=== PATIENT | male | born 1960 | race Hispanic/Latino ===

== ENCOUNTER 2020-03-10 17:49 | Inpatient (IN) | payer OTHER, SELFPAY ==
[2020-03-10] VITALS (12 sets, daily range): BP systolic 119–159; BP diastolic 69–88; PULSE 112–136; RESP 12–26; TEMP 36.9–37.9; O2SAT 94–96; BMI 35.6
--- NOTE | 2020-03-10 19:26 | DI.RAD.S_ITS ---
PROCEDURE: XR CHEST 1V INDICATIONS: suspected sepsis TECHNIQUE: One view of the chest was acquired. COMPARISON: None. FINDINGS: Surgical changes and devices: None. Lungs and pleura: Mild borderline consolidative in the right mid lung and lung base. No pleural effusions or pneumothorax. Mediastinum: Mediastinal contours appear normal. Heart size is normal. Bones and chest wall: No suspicious bony lesions. Overlying soft tissues appear unremarkable. IMPRESSION: Mild borderline consolidative airspace opacity in the right lung base and right mid lung. Dictated by: aFzal Soriano M.D. on 03/10/2020 at 20:16 Approved by: Fazal Soriano M.D. on 03/10/2020 at 20:17
[2020-03-10 19:42] LABS: COVID19 -Nasal RAPID POSITIVE (Negative)
--- NOTE | 2020-03-10 20:04 | ED_ITS ---
HPI - Fever General Chief Complaint: Fever Stated Complaint: Temp 104.5, Elevated BP Time Seen by Provider: 03/10/20 18:53 Source: patient Mode of arrival: Ambulatory Limitations: no limitations History of Present Illness HPI Narrative: 59-year-old male former smoker with history of hypertension, hyperlipidemia, diabetes and asthma presents with fever, body aches in increasing dry and hacking cough, shortness of breath with exertion, decreased appetite and as of today he noted decreased ability to smell and taste. He is concerned that he has been exposed to persons with COVID and after calling his primary care provider was encouraged to present to them for evaluation but chose to come see us for more complete and thorough evaluation. He has had no diarrhea or urinary complaints. His symptoms started about 6 days ago MD complaint: fever Maximum Temperature: 102.6 F Temperature Source: oral Context: sick contacts Relieving factors: nothing Exacerbating factors: exertion Treatments prior to arrival fever: acetaminophen and ibuprofen Related Data Home Medications Medication Instructions Recorded Confirmed cetirizine 10 mg PO QDAY #0 06/04/16 03/11/20 diphenhydramine HCl [Benadryl 25 mg PO QPM #0 06/04/16 03/11/20 Allergy] glipizide [Glucotrol XL] 5 mg PO BID #0 06/04/16 03/11/20 metformin 1,000 mg BID #0 06/04/16 03/11/20 omeprazole 20 mg PO QPM #0 06/04/16 03/11/20 sulindac 150 mg PO BID #0 06/04/16 03/11/20 albuterol sulfate [ProAir HFA] 2 puff INHALATION Q4-6H PRN 03/11/20 03/11/20 carboxymethylcellulose sodium 2 drp OPHTHALMIC (EYE) PRN PRN 03/11/20 03/11/20 [Refresh Tears] losartan 25 mg PO DAILY 03/11/20 03/11/20 Allergies Allergy/AdvReac Type Severity Reaction Status Date / Time aspirin [ASPIRIN] Allergy Unknown Verified 03/10/20 18:06 Penicillins [PENICILLINS] Allergy Unknown Verified 03/10/20 18:06 lisinopril Allergy Verified 03/10/20 18:07 tramadol Allergy Verified 03/10/20 18:07 Review of Systems Constitutional Constitutional: Reports chills, Denies fatigue, Reports fever(s), Denies frequ ent falls, Denies lethargy and Reports weakness Eyes Eyes: Denies change in vision, Denies eye discharge, Denies irritation and Denies loss of vision ENT Ears, Nose, Mouth, and Throat: Denies change in voice, Denies dizziness, Denies neck pain, Denies sore throat and Denies throat swelling Cardiovascular Cardiovascular: Denies chest pain, Denies irregular heart rhythm, Denies lightheadedness, Denies palpitations, Reports dyspnea, Denies dyspnea on exertion and Denies orthopnea Respiratory Respiratory: Reports cough, Reports dyspnea, Denies dyspnea on exertion and Denies wheezing Gastrointestinal Gastrointestinal: Denies abdominal pain, Denies change in bowel habits, Denies diarrhea, Denies nausea and Denies vomiting Musculoskeletal Musculoskeletal: Denies neck pain and Denies numbness Integumentary/Breasts Skin/Breast: Denies pruritus, Denies erythema, Denies rash and Denies wounds Neurologic Neurologic: Denies behavioral changes, Denies confusion, Denies dizziness, Denies frequent falls, Denies loss of vision, Denies numbness and Reports weakness Psychiatric Psychiatric: Denies anxiety, Denies behavioral changes, Denies confusion, Denies depression, Denies homicidal ideation and Denies suicidal ideation Endocrine Endocrine: Denies fatigue, Denies flushing and Denies palpitations Hematologic/Lymphatic Hematologic/Lymphatic: Denies easy bruising Allergic/Immunologic Allergic/Immunologic: Denies urticaria, Denies throat swelling and Denies wheezing Patient History Medical History Acid reflux Asthma Diabetes mellitus High blood pressure Pollen allergies Surgical History No history of previous surgery Family History Father Old age Mother Healthy adult Other Family history of allergies Social History household members: spouse and children Smoking Status: Former smoker alcohol intake: current Smoking Status: Unknown if ever smoked alcohol intake frequency: holidays/special occasions only Substance Use Type: does not use Exam Narrative Exam Narrative: GENERAL: [59] year old patient appears stated age. Well- nourished, well-developed patient, in mild distress. With conversation respirations become mildly labored and rate increases to upper 20s HEAD: Atraumatic. Normocephalic. EYES: Pupils equal round and reactive. Extraocular motions intact. No scleral icterus. No injection or drainage. ENT: Nose without bleeding, purulent drainage. Throat without erythema, tonsillar hypertrophy or exudate. Airway patent. NECK: Trachea midline. Non tender CARDIOVASCULAR: Regular rate and rhythm without murmurs, gallops, or rubs. RESPIRATORY: Clear to auscultation. Crackles in right lower lobe GASTROINTESTINAL: Abdomen soft, non-tender, nondistended. EXTREMITIES: No edema or joint tenderness. BACK: Nontender without deformity or crepitance. No flank tenderness. NEURO: AOx3. SKIN: No rash or erythema of visible areas Initial Vital Signs Initial Vital Signs: Vital Signs Temperature 100.3 F H 03/10/20 18:07 Pulse Rate 136 H 03/10/20 18:07 Respiratory Rate 16 03/10/20 18:07 Blood Pressure 133/83 03/10/20 18:07 Pulse Oximetry 96 03/10/20 18:07 Course Orders Ordered: Acetaminophen (Acetaminophen 325 Mg Tablet) 650 mg PO Q4H PRN PRN Reason: Fever/Mild Pain (1-3) Last Admin: 03/11/20 13:48 Dose: 650 mg Documented by: JAYLYN Albuterol (Albuterol Hfa 200 Puff/18 Gm Inh (Covid Pos/Vent Pts)) 2 puff INH RTQ6HR PRN PRN Reason: Shortness Of Breath Last Admin: 03/11/20 05:14 Dose: 2 puff Documented by: [email or web address] Albuterol/Ipratropium (Albuterol/Ipratropium Mdi) 1 puff INH [id number] AMARILIS Last Admin: 03/11/20 13:56 Dose: 1 puff Documented by: Admin: 03/11/20 11:04 Dose: Not Given Documented by: JHONY Benzocaine (Benzocaine/Menthol 1 Estrada Pkt) 1 each PO Q1HR PRN PRN Reason: Sore Throat Last Admin: 03/11/20 12:19 Dose: 1 each Documented by: Admin: 03/11/20 09:01 Dose: 1 each Documented by: Admin: 03/11/20 06:52 Dose: 1 each Documented by: DANISFARZee Dextrose (Dextrose 50 % In Water 25 Gm/50 Ml Syringe) 25 gm IV PRN PRN PRN Reason: Hypoglycemia Diphenhydramine HCl (Diphenhydramine 25 Mg Tablet) 25 mg PO QPM [facility] Enoxaparin Sodium (Enoxaparin 40 Mg/0.4 Ml Syringe) 40 mg SUBCUT DAILY [facility] Last Admin: 03/11/20 09:00 Dose: 40 mg Documented by: JAYLYN Guaifenesin (Guaifenesin Er 600 Mg Tab) 1,200 mg PO BID [facility] Last Admin: 03/11/20 12:19 Dose: 1,200 mg Documented by: JAYLYN Ibuprofen (Ibuprofen 600 Mg Tablet) 600 mg PO Q6HR PRN PRN Reason: Fever/Mild Pain (1-3) Insulin Aspart (Insulin Aspart 100 Unit/Ml Insuln Pen) 0 unit SUBCUT ACHS [facility]; Protocol Last Admin: 03/11/20 12:18 Dose: 3 unit Documented by: JAYLYN Cosigned by: ACHESS Admin: 03/11/20 09:00 Dose: 3 unit Documented by: JAYLYN Cosigned by: TBLANCHARI Insulin Glargine (Insulin Glargine 100 Unit/Ml 3ml Pen) 10 unit SUBCUT 2100 [facility] Levofloxacin (Levofloxacin 250 Mg Tablet) 750 mg PO BEDTIME [facility] Stop: 03/14/20 21:01 Losartan Potassium (Losartan 25 Mg Tablet) 25 mg PO DAILY [facility] Last Admin: 03/11/20 09:01 Dose: 25 mg Documented by: JAYLYN Naloxone HCl (Naloxone 0.4 Mg/Ml Vial) 0.2 mg IV Q2MIN PRN PRN Reason: Opiate Reversal Sodium Chloride (Sodium Chloride 0.9% Flush) 10 ml IV PRN PRN PRN Reason: Flush Discontinued Medications Acetaminophen (Acetaminophen 325 Mg Tablet) 650 mg PO Q6HR PRN PRN Reason: Fever/Mild Pain (1-3) Last Admin: 03/11/20 09:02 Dose: 650 mg Documented by: JAYLYN Albuterol (Albuterol Hfa 200 Puff/18 Gm Inh (Covid Pos/Vent Pts)) 2 puff INH Q4H PRN PRN Reason: Shortness Of Breath Sodium Chloride (Normal Saline 0.9%) 1,000 mls @ 1,000 mls/hr IV BOLUS ONE Stop: 03/10/20 20:25 Last Infusion: 03/10/20 21:27 Dose: 0 mls/hr Documented by: Admin: 03/10/20 20:14 Dose: 1,000 mls/hr Documented by: IRIS Sodium Chloride (Normal Saline 0.9%) 1,000 mls @ 1,000 mls/hr IV BOLUS ONE Stop: 03/10/20 22:38 Last Infusion: 03/10/20 22:58 Dose: 0 mls/hr Documented by: Admin: 03/10/20 21:47 Dose: 1,000 mls/hr Documented by: IRIS Levofloxacin (Levaquin) 750 mg in 150 mls @ 100 mls/hr IV NOW ONE Stop: 03/10/20 23:09 Last Infusion: 03/10/20 23:26 Dose: 0 mls/hr Documented by: Admin: 03/10/20 21:47 Dose: 100 mls/hr Documented by: IRIS Sodium Chloride (Normal Saline 0.9%) 1,000 mls @ 100 mls/hr IV CONT AMARILIS Last Infusion: 03/11/20 13:09 Dose: 0 mls/hr Documented by: Admin: 03/11/20 02:51 Dose: 100 mls/hr Documented by: DANISFARL Levofloxacin (Levaquin) 750 mg in 150 mls @ 100 mls/hr IV Q24H AMARILIS Last Admin: 03/11/20 02:52 Dose: Not Given Documented by: CMCFARL Levofloxacin (Levaquin) 750 mg in 150 mls @ 100 mls/hr IV BID AMARILIS Levofloxacin (Levaquin) 750 mg in 150 mls @ 100 mls/hr IV Q24H [facility] Vital Signs Vital signs: Vital Signs - 8 hr 03/10/20 18:07 Temperature 100.3 F H Pulse Rate 136 H Respiratory Rate 16 Blood Pressure 133/83 Pulse Oximetry 96 MDM - Fever Lab Data Result diagrams: 03/11/20 05:57 03/11/20 05:57 Labs: Lab Results 03/10/20 03/10/20 03/10/20 Range/Units 18:12 19:54 20:00 WBC 7.3 (4.5-11.0) X10^3/uL RBC 5.58 (4.5-5.9) X10^6/uL Hgb 15.9 (13.5-17.5) g/dL Hct 46.6 (41-53) % MCV 83.5 (80-100) fL MCH 28.4 (26-34) PG MCHC 34.0 (30-36) % RDW 13.0 (11.6-14.8) % Plt Count 139 L (150-400) X10^3/uL Neut % (Auto) 72.4 (50-75) % Lymph % (Auto) 17.2 L (25-40) % [place] % (Auto) 9.9 (3-14) % Eos % (Auto) 0.0 L (2-4) % Baso % (Auto) 0.5 (0-2) % Neut # (Auto) 5200 (0732-1269) /uL Lymph # (Auto) 1200 (8259-7571) /uL [place] # (Auto) 700 (0-900) /uL Eos # (Auto) 0 (0-450) /uL Baso # (Auto) 0 (0-100) /uL PT (10.1-12.7) SECONDS INR (0.9-1.3) APTT (26.4-36.2) SECONDS D-Dimer (<230) ng/mL Sodium (137-145) mmol/L Potassium (3.4-5.1) mmol/L Chloride (98-107) mmol/L Carbon Dioxide (22-32) mmol/L BUN (9-20) mg/dL Creatinine (0.66-1.25) mg/dL Estimated GFR (>60) mL/min BUN/Creatinine Ratio (6-22) Glucose (80-110) mg/dL Hemoglobin A1c (4.0-6.0) % Lactate (0.7-2.1) mmol/L Calcium (8.4-10.2) mg/dL Total Bilirubin (0.2-1.3) mg/dL AST (17-59) IU/L ALT (<50) IU/L Alkaline Phosphatase (38-126) U/L Total Protein (6.3-8.2) g/dL Albumin (3.5-5.0) g/dL Globulin (1.7-4.1) g/dL Albumin/Globulin Ratio (1.0-2.8) Lipase (23-300) U/L Procalcitonin (<0.5) ng/mL Urine Color Urine Appearance Urine pH (4.5-8.0) Ur Specific [place] (1.000-1.035) Urine Protein (Negative) Urine Glucose (UA) (Negative) g/dL Urine Ketones (NEGATIVE) Urine Occult Blood (Negative) Urine Nitrate (Negative) Urine Bilirubin (NEGATIVE) Urine Urobilinogen (0.2) E.U./dL Ur Leukocyte Esterase (NEGATIVE) Urine RBC (0-5/HPF) Urine WBC (0-5/HPF) Amorphous Sediment Urine Bacteria (None) Ur Culture Indicated? COVID-19 PCR Positive H Positive H (Negative) 03/10/20 03/10/20 03/10/20 Range/Units 20:00 20:00 20:00 WBC (4.5-11.0) X10^3/uL RBC (4.5-5.9) X10^6/uL Hgb (13.5-17.5) g/dL Hct (41-53) % MCV (80-100) fL MCH (26-34) PG MCHC (30-36) % RDW (11.6-14.8) % Plt Count (150-400) X10^3/uL Neut % (Auto) (50-75) % Lymph % (Auto) (25-40) % [place] % (Auto) (3-14) % Eos % (Auto) (2-4) % Baso % (Auto) (0-2) % Neut # (Auto) (7018-8335) /uL Lymph # (Auto) (1725-0750) /uL [place] # (Auto) (0-900) /uL Eos # (Auto) (0-450) /uL Baso # (Auto) (0-100) /uL PT 12.6 (10.1-12.7) SECONDS INR 1.1 (0.9-1.3) APTT 35 (26.4-36.2) SECONDS D-Dimer (<230) ng/mL Sodium 135 L (137-145) mmol/L Potassium 3.9 (3.4-5.1) mmol/L Chloride 101 (98-107) mmol/L Carbon Dioxide 23 (22-32) mmol/L BUN 13 (9-20) mg/dL Creatinine 0.66 (0.66-1.25) mg/dL Estimated GFR > 60.0 (>60) mL/min BUN/Creatinine Ratio 19.7 (6-22) Glucose 327 H (80-110) mg/dL Hemoglobin A1c (4.0-6.0) % Lactate (0.7-2.1) mmol/L Calcium 9.1 (8.4-10.2) mg/dL Total Bilirubin 0.6 (0.2-1.3) mg/dL AST 55 (17-59) IU/L ALT 60 H (<50) IU/L Alkaline Phosphatase 74 (38-126) U/L Total Protein 7.5 (6.3-8.2) g/dL Albumin 4.3 (3.5-5.0) g/dL Globulin 3.2 (1.7-4.1) g/dL Albumin/Globulin Ratio 1.3 (1.0-2.8) Lipase 56 (23-300) U/L Procalcitonin < 0.05 (<0.5) ng/mL Urine Color Urine Appearance Urine pH (4.5-8.0) Ur Specific [place] (1.000-1.035) Urine Protein (Negative) Urine Glucose (UA) (Negative) g/dL Urine Ketones (NEGATIVE) Urine Occult Blood (Negative) Urine Nitrate (Negative) Urine Bilirubin (NEGATIVE) Urine Urobilinogen (0.2) E.U./dL Ur Leukocyte Esterase (NEGATIVE) Urine RBC (0-5/HPF) Urine WBC (0-5/HPF) Amorphous Sediment Urine Bacteria (None) Ur Culture Indicated? COVID-19 PCR (Negative) 03/10/20 03/10/20 03/10/20 Range/Units 20:00 20:00 20:00 WBC (4.5-11.0) X10^3/uL RBC (4.5-5.9) X10^6/uL Hgb (13.5-17.5) g/dL Hct (41-53) % MCV (80-100) fL MCH (26-34) PG MCHC (30-36) % RDW (11.6-14.8) % Plt Count (150-400) X10^3/uL Neut % (Auto) (50-75) % Lymph % (Auto) (25-40) % [place] % (Auto) (3-14) % Eos % (Auto) (2-4) % Baso % (Auto) (0-2) % Neut # (Auto) (2623-5995) /uL Lymph # (Auto) (4175-3992) /uL [place] # (Auto) (0-900) /uL Eos # (Auto) (0-450) /uL Baso # (Auto) (0-100) /uL PT (10.1-12.7) SECONDS INR (0.9-1.3) APTT (26.4-36.2) SECONDS D-Dimer 220 (<230) ng/mL Sodium (137-145) mmol/L Potassium (3.4-5.1) mmol/L Chloride (98-107) mmol/L Carbon Dioxide (22-32) mmol/L BUN (9-20) mg/dL Creatinine (0.66-1.25) mg/dL Estimated GFR (>60) mL/min BUN/Creatinine Ratio (6-22) Glucose (80-110) mg/dL Hemoglobin A1c 9.3 H (4.0-6.0) % Lactate 1.2 (0.7-2.1) mmol/L Calcium (8.4-10.2) mg/dL Total Bilirubin (0.2-1.3) mg/dL AST (17-59) IU/L ALT (<50) IU/L Alkaline Phosphatase (38-126) U/L Total Protein (6.3-8.2) g/dL Albumin (3.5-5.0) g/dL Globulin (1.7-4.1) g/dL Albumin/Globulin Ratio (1.0-2.8) Lipase (23-300) U/L Procalcitonin (<0.5) ng/mL Urine Color Urine Appearance Urine pH (4.5-8.0) Ur Specific [place] (1.000-1.035) Urine Protein (Negative) Urine Glucose (UA) (Negative) g/dL Urine Ketones (NEGATIVE) Urine Occult Blood (Negative) Urine Nitrate (Negative) Urine Bilirubin (NEGATIVE) Urine Urobilinogen (0.2) E.U./dL Ur Leukocyte Esterase (NEGATIVE) Urine RBC (0-5/HPF) Urine WBC (0-5/HPF) Amorphous Sediment Urine Bacteria (None) Ur Culture Indicated? COVID-19 PCR (Negative) 03/10/20 Range/Units 21:12 WBC (4.5-11.0) X10^3/uL RBC (4.5-5.9) X10^6/uL Hgb (13.5-17.5) g/dL Hct (41-53) % MCV (80-100) fL MCH (26-34) PG MCHC (30-36) % RDW (11.6-14.8) % Plt Count (150-400) X10^3/uL Neut % (Auto) (50-75) % Lymph % (Auto) (25-40) % [place] % (Auto) (3-14) % Eos % (Auto) (2-4) % Baso % (Auto) (0-2) % Neut # (Auto) (3153-3609) /uL Lymph # (Auto) (9120-7323) /uL [place] # (Auto) (0-900) /uL Eos # (Auto) (0-450) /uL Baso # (Auto) (0-100) /uL PT (10.1-12.7) SECONDS INR (0.9-1.3) APTT (26.4-36.2) SECONDS D-Dimer (<230) ng/mL Sodium (137-145) mmol/L Potassium (3.4-5.1) mmol/L Chloride (98-107) mmol/L Carbon Dioxide (22-32) mmol/L BUN (9-20) mg/dL Creatinine (0.66-1.25) mg/dL Estimated GFR (>60) mL/min BUN/Creatinine Ratio (6-22) Glucose (80-110) mg/dL Hemoglobin A1c (4.0-6.0) % Lactate (0.7-2.1) mmol/L Calcium (8.4-10.2) mg/dL Total Bilirubin (0.2-1.3) mg/dL AST (17-59) IU/L ALT (<50) IU/L Alkaline Phosphatase (38-126) U/L Total Protein (6.3-8.2) g/dL Albumin (3.5-5.0) g/dL Globulin (1.7-4.1) g/dL Albumin/Globulin Ratio (1.0-2.8) Lipase (23-300) U/L Procalcitonin (<0.5) ng/mL Urine Color Yellow Urine Appearance Clear Urine pH 5.5 (4.5-8.0) Ur Specific [place] 1.025 (1.000-1.035) Urine Protein Trace H (Negative) Urine Glucose (UA) 2+ H (Negative) g/dL Urine Ketones 2+ H (NEGATIVE) Urine Occult Blood Trace-lysed (Negative) Urine Nitrate Negative (Negative) Urine Bilirubin Negative (NEGATIVE) Urine Urobilinogen 0.2 (0.2) E.U./dL Ur Leukocyte Esterase Negative (NEGATIVE) Urine RBC 1-5/hpf (0-5/HPF) Urine WBC None seen (0-5/HPF) Amorphous Sediment 2+ Urine Bacteria None seen (None) Ur Culture Indicated? Cult not indicated COVID-19 PCR (Negative) Urine Dip Bedside Urine Glucose 1000 mg/dl Bedside Urine Bilirubin - Negative Bedside Urine Ketone ++ 40 Urine Specific [place] 1.030 Bedside Urine Occult Blood - Negative Bedside Urine pH 5.5 Bedside Urine Protein +/- 15 Bedside Urine Urobilinogen - Negative Bedside Urine Nitrite - Negative Bedside Urine Leukocytes - Negative Esterase Imaging Data Chest x-ray: Radiologist's Impression: [address] [id number] ReportSigned Patient: Hamilton Keen AMR#: [id number]: 1960Acct:[id number]/Sex: 59 / MDate of Service: 03/10/20Loc: EDAccession Number: [id number] Procedure: XR chest 1V Ordering Provider: Pancho Davey D.O. PROCEDURE: XR CHEST 1V INDICATIONS: suspected sepsis TECHNIQUE: One view of the chest was acquired. COMPARISON: None. FINDINGS: Surgical changes and devices: None. Lungs and pleura: Mild borderline consolidative in the right mid lung and lung base. No pleural effusions or pneumothorax. Mediastinum: Mediastinal contours appear normal. Heart size is normal. Bones and chest wall: No suspicious bony lesions. Overlying soft tissues appear unremarkable. IMPRESSION: Mild borderline consolidative airspace opacity in the right lung base and right mid lung. Dictated by: Fazal Soriano M.D. on 03/10/2020 at 20:16 Approved by: Fazal Soriano M.D. on 03/10/2020 at 20:17 [facility] Narrative Medical decision making narrative: 59-year-old male is COVID positive and has high risk for deterioration including obesity, asthma, diabetic history. He currently is not requiring supplemental oxygen and meets ACEP definition of Moderate COVID given physical exam findings of abnormal lung findings and abnormal findings on imaging. Current recommendations are treatment of possible bacterial etiology, monitoring, hospitalization. No current evidence to suggest this category of patient will benefit from steroids or remdesivir. Patient understands and is in agreement with plan Discharge Plan Departure Patient Disposition: Admitted as Observation Clinical Impression: 2019 novel coronavirus–infected pneumonia (NCIP)#[id number];infected pneumonia (NCIP) Admit Date/Time: 03/11/20 01:04 Admit Provider: Ruchi Cheney
[2020-03-10] MEDS: SODIUM CHLORIDE 0.9% 1,000 ML 1000 ML IV ×2 (20:14→21:47)
[2020-03-10 20:19] LABS: Add Manual Diff / Slide Review NO; Basophils Absolute Auto 0 /uL (0-100); Basophils Percent Auto 0.5 % (0-2); Eosinophils Absolute Auto 0 /uL (0-450); Hematocrit 46.6 % (41-53); Hemoglobin 15.9 g/dL (13.5-17.5); Lymphocytes Absolute Auto 1200 /uL (1100-4500); Lymphocytes Percent Auto 17.2 % (25-40); Mean Corpuscular Hemoglobin 28.4 PG (26-34); Mean Corpuscular Volume 83.5 fL (80-100); Monocytes Absolute Auto 700 /uL (0-900); Monocytes Percent Auto 9.9 % (3-14); Neutrophils Absolute Auto 5200 /uL (1500-7000); Neutrophils Percent Auto 72.4 % (50-75); Platelet Count 139 X10^3/uL (150-400); Red Blood Cell Count 5.58 X10^6/uL (4.5-5.9); White Blood Cell Count 7.3 X10^3/uL (4.5-11.0)
[2020-03-10 20:26] LABS: INR 1.1 (0.9-1.3); Prothrombin Time 12.6 SECONDS (10.1-12.7)
[2020-03-10 20:28] LABS: PTT Partial Thromboplastin Tim 35 SECONDS (26.4-36.2)
[2020-03-10 20:31] LABS: Lactate (Lactic Acid) 1.2 mmol/L (0.7-2.1)
[2020-03-10 20:32] LABS: Alanine Aminotransferase 60 IU/L (<50); Albumin 4.3 g/dL (3.5-5.0); Albumin Globulin Ratio 1.3 (1.0-2.8); Alkaline Phosphatase 74 U/L (38-126); Aspartate Aminotransferase 55 IU/L (17-59); BUN Creatinine Ratio 19.7 (6-22); Bilirubin Total 0.6 mg/dL (0.2-1.3); Blood Urea Nitrogen 13 mg/dL (9-20); Calcium 9.1 mg/dL (8.4-10.2); Carbon Dioxide 23 mmol/L (22-32); Chloride 101 mmol/L (98-107); Estimated Glomerular Filt Rate > 60.0 mL/min (>60); Globulin 3.2 g/dL (1.7-4.1); Glucose 327 mg/dL (80-110); HEMOLYSIS < 15 (0-50); Lipase 56 U/L (23-300); Potassium 3.9 mmol/L (3.4-5.1); Sodium 135 mmol/L (137-145); Total Protein 7.5 g/dL (6.3-8.2)
[2020-03-10 20:44] LABS: COVID19 -Nasal RAPID POSITIVE (Negative)
[2020-03-10 20:46] LABS: D Dimer 220 ng/mL (<230)
[2020-03-10 20:47] LABS: Procalcitonin < 0.05 ng/mL (<0.5)
[2020-03-10] MEDS: levoFLOXacin 750 MG/150 ML PIGGYBACK 100 MG IV (21:47)
[2020-03-10 22:08] LABS: Bacteria Urine None Seen; WBC Urine None Seen (0-5/HPF)
[2020-03-10 22:19] LABS: Appearance Urine UA CLEAR; Bilirubin Urine UA NEGATIVE (NEGATIVE); Color Urine UA YELLOW; Glucose Urine UA 2+ g/dL (Negative); Ketones Urine UA 2+ (NEGATIVE); Leukocyte Esterase Urine UA NEGATIVE (NEGATIVE); Nitrite Urine UA NEGATIVE (Negative); Occult Blood Urine UA TRACE-LYSED (Negative); Protein Urine UA TRACE (Negative); Specific Gravity Urine UA 1.025 (1.000-1.035); Urobilinogen Urine UA 0.2 E.U./dL (0.2); pH Urine UA 5.5 (4.5-8.0)
[2020-03-10 22:26] LABS: Amorphous Sediment Urine 2+; Culture Indicated Urine Cult Not Indicated; RBC Urine 1-5/HPF (0-5/HPF)
--- NOTE | 2020-03-10 23:00 | PC.NURSE ---
Spoke with officer that brought pt in. Officer is leaving now and states that any further decisions will be made by the MD and [facility], pt is not under arrest
[2020-03-11] VITALS (19 sets, daily range): BP systolic 133–190; BP diastolic 67–93; PULSE 102–121; RESP 16–24; TEMP 36.8–39.4; O2SAT 93–97; BMI 35.6
--- NOTE | 2020-03-11 02:28 | PM.HP.1 ---
History of Present Illness History of Present Illness Date Patient Seen: 03/11/20 Time Patient Seen: 01:00 Chief complaint: Temp 104.5, Elevated BP Narrative: Hamilton Keen is a 59-year-old male with Diabetes type 2 and essential hypertension who presented with a 6 day history of worsening shortness of breath, cough no taste, seen at PCPs, had a fever of 104 and sent to ED, found to have a right lower lobe pneumonia and is COVID-19 positive. 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 Patient states that when he lost his sense of taste and started coughing he became quite concerned that he might have COVID -19. Other than the fever he denies chills or sweats, nausea, chest pain, dysuria, diarrhea or constipation. Chest x-ray done in the ED indicated consolidation of the right lower lung base. His COVID-19 PCR was positive and he is not requiring supplemental oxygen at this time. T-max was 100.3? in the emergency department is currently 98.8, blood pressure 157 over so 86, heart rate 106, respiratory rate of 18, oxygen saturation 96% on room air, he weighs 112 kg with a BMI of 134.4. With exception of his platelet count on his CBC is with a largely within normal limits his platelet count was a 139 and he has lymphopenia, sodium 135, glucose 327, A1c is pending, his ALT is slightly elevated at 60, urinalysis does not meet criteria for culture and COVID-19 PCR is positive. Patient History Medical History Acid reflux Asthma Diabetes mellitus High blood pressure Pollen allergies Surgical History No history of previous surgery Family & Social History Family History Father Old age Mother Healthy adult Other Family history of allergies Social History: household members spouse,children Prior Living Arrangements House Safety & Behavioral: Feels Safe in Current Yes Environment Been Physically Hurt or No Threatened By a Person Suicidal Ideation Description None Suicide Plan Description No Plan Tobacco & Substance use: Smoking Status Former smoker alcohol intake frequency holiday/special occasion Substance Use Type does not use Meds Home Medications and Allergies Home Medications Medication Instructions Recorded Confirmed Type cetirizine 10 mg PO QDAY #0 06/04/16 03/11/20 History diphenhydramine HCl [Benadryl 25 mg PO QPM #0 06/04/16 03/11/20 History Allergy] glipizide [Glucotrol XL] 5 mg PO BID #0 06/04/16 03/11/20 History metformin 1,000 mg BID #0 06/04/16 03/11/20 History omeprazole 20 mg PO QPM #0 06/04/16 03/11/20 History sulindac 150 mg PO BID #0 06/04/16 03/11/20 History albuterol sulfate [ProAir HFA] 2 puff INHALATION Q4-6H PRN 03/11/20 03/11/20 History carboxymethylcellulose sodium 2 drp OPHTHALMIC (EYE) PRN PRN 03/11/20 03/11/20 History [Refresh Tears] losartan 25 mg PO DAILY 03/11/20 03/11/20 History Allergies Allergy/AdvReac Type Severity Reaction Status Date / Time aspirin [ASPIRIN] Allergy Unknown Verified 03/10/20 18:06 Penicillins [PENICILLINS] Allergy Unknown Verified 03/10/20 18:06 lisinopril Allergy Verified 03/10/20 18:07 tramadol Allergy Verified 03/10/20 18:07 Review of Systems Review of Systems ROS: Yes All systems reviewed with the patient and are negative except as otherwise documented Exam Vital Signs (past 8 hours): - 03/10/20 19:52 03/10/20 19:53 03/10/20 20:00 Temperature Pulse Rate 124 H 124 H 124 H Respiratory Rate 19 24 Blood Pressure 148/88 H 119/82 Pulse Oximetry 95 95 94 03/10/20 20:30 03/10/20 21:00 03/10/20 21:30 Temperature Pulse Rate 119 H 114 H 117 H Respiratory Rate 16 18 26 H Blood Pressure 159/83 H 136/83 148/86 H Pulse Oximetry 94 96 96 03/10/20 22:00 03/10/20 22:30 03/10/20 23:00 Temperature Pulse Rate 119 H 115 H 116 H Respiratory Rate 18 23 12 Blood Pressure 150/82 H 133/71 128/69 Pulse Oximetry 95 94 94 03/10/20 23:29 03/10/20 23:30 03/11/20 00:00 Temperature 98.4 F Pulse Rate 112 H 110 H Respiratory Rate 20 24 Blood Pressure 130/69 133/67 Pulse Oximetry 94 96 03/11/20 00:30 03/11/20 01:00 03/11/20 01:20 Temperature 98.3 F Pulse Rate 112 H 109 H 117 H Respiratory Rate 22 16 Blood Pressure 149/74 H 140/80 190/93 H Pulse Oximetry 96 95 Oxygen Delivery Method Room Air Narrative Exam Narrative: Gen: Alert, oriented, well-developed 59 y.o. male, mildly anxious HEENT: normocephalic, atraumatic, conjunctiva clear, sclera non-icteric, oral mucosa pink and moist Neck: supple, full ROM, no JVD, trachea is midline Resp: diminished lung sounds, non-labored breathing CV: RRR, no murmur or rubs Abd: soft, non-tender, normoactive BTs Skin: no lesions or rashes, dry and intact Neuro: Alert and oriented X 4 w/no focal deficits. Speech clear and coherent. Extremities: moves all 4 extremities, is ambulatory, negative Anderson?s sign Psyche: normal mood and affect. Objective Labs Result Diagrams: 03/10/20 20:00 03/10/20 20:00 Labs: Laboratory Results - last 24 hr 03/10/20 03/10/20 03/10/20 18:12 19:54 20:00 WBC 7.3 RBC 5.58 Hgb 15.9 Hct 46.6 MCV 83.5 MCH 28.4 MCHC 34.0 RDW 13.0 Plt Count 139 L Neut % (Auto) 72.4 Lymph % (Auto) 17.2 L Emanuel % (Auto) 9.9 Eos % (Auto) 0.0 L Baso % (Auto) 0.5 Neut # (Auto) 5200 Lymph # (Auto) 1200 [place]manuel # (Auto) 700 Eos # (Auto) 0 Baso # (Auto) 0 PT INR APTT D-Dimer Sodium Potassium Chloride Carbon Dioxide BUN Creatinine Estimated GFR BUN/Creatinine Ratio Glucose Lactate Calcium Total Bilirubin AST ALT Alkaline Phosphatase Total Protein Albumin Globulin Albumin/Globulin Ratio Lipase Procalcitonin Urine Color Urine Appearance Urine pH Ur Specific [place] Urine Protein Urine Glucose (UA) Urine Ketones Urine Occult Blood Urine Nitrate Urine Bilirubin Urine Urobilinogen Ur Leukocyte Esterase Urine RBC Urine WBC Amorphous Sediment Urine Bacteria Ur Culture Indicated? COVID-19 PCR Positive H Positive H 03/10/20 03/10/20 03/10/20 20:00 20:00 20:00 WBC RBC Hgb Hct MCV MCH MCHC RDW Plt Count Neut % (Auto) Lymph % (Auto) Emanuel % (Auto) Eos % (Auto) Baso % (Auto) Neut # (Auto) Lymph # (Auto) Emanuel # (Auto) Eos # (Auto) Baso # (Auto) PT 12.6 INR 1.1 APTT 35 D-Dimer Sodium 135 L Potassium 3.9 Chloride 101 Carbon Dioxide 23 BUN 13 Creatinine 0.66 Estimated GFR > 60.0 BUN/Creatinine Ratio 19.7 Glucose 327 H Lactate Calcium 9.1 Total Bilirubin 0.6 AST 55 ALT 60 H Alkaline Phosphatase 74 Total Protein 7.5 Albumin 4.3 Globulin 3.2 Albumin/Globulin Ratio 1.3 Lipase 56 Procalcitonin < 0.05 Urine Color Urine Appearance Urine pH Ur Specific [place] Urine Protein Urine Glucose (UA) Urine Ketones Urine Occult Blood Urine Nitrate Urine Bilirubin Urine Urobilinogen Ur Leukocyte Esterase Urine RBC Urine WBC Amorphous Sediment Urine Bacteria Ur Culture Indicated? COVID-19 PCR 03/10/20 03/10/20 03/10/20 20:00 20:00 21:12 WBC RBC Hgb Hct MCV MCH MCHC RDW Plt Count Neut % (Auto) Lymph % (Auto) Emanuel % (Auto) Eos % (Auto) Baso % (Auto) Neut # (Auto) Lymph # (Auto) Emanuel # (Auto) Eos # (Auto) Baso # (Auto) PT INR APTT D-Dimer 220 Sodium Potassium Chloride Carbon Dioxide BUN Creatinine Estimated GFR BUN/Creatinine Ratio Glucose Lactate 1.2 Calcium Total Bilirubin AST ALT Alkaline Phosphatase Total Protein Albumin Globulin Albumin/Globulin Ratio Lipase Procalcitonin Urine Color Yellow Urine Appearance Clear Urine pH 5.5 Ur Specific [place] 1.025 Urine Protein Trace H Urine Glucose (UA) 2+ H Urine Ketones 2+ H Urine Occult Blood Trace-lysed Urine Nitrate Negative Urine Bilirubin Negative Urine Urobilinogen 0.2 Ur Leukocyte Esterase Negative Urine RBC 1-5/hpf Urine WBC None seen Amorphous Sediment 2+ Urine Bacteria None seen Ur Culture Indicated? Cult not indicated COVID-19 PCR Assessment & Plan Assessment & Plan narrative: Holly Randle is a 59-year-old male who will be admitted to the inpatient floor for treatment and management of a COVID-19 viral infection superimposed on a bacterial right lower lobe pneumonia. Right lower lobe pneumonia, acute, present on admission -he is started on IV Levaquin 750 mg daily and can transition on day 2 to orals -Tylenol for fever control COVID-19, acute, present on admission -he is have albuterol and DuoNeb inhalers -he is considered to have a moderate case of COVID-19 requiring hospitalization -currently is in a normalized pressure room on isolation precautions -He is at high risk to progress to requiring supplemental oxygen Diabetes type 2, appears to be not well controlled, present on admission -A1c is pending -metformin is being held and start glargine 10 units subcu at bedtime -medium dose correctional insulin a.c. and HS -carb controlled diet Essential hypertension, chronic, present on admission -continue home dose of losartan 25 mg p.o. daily VTE prophylaxis: Wells risk score: 0 Enoxaparin 40 mg subQ daily. COVID-19 guidelines for this case calls for VTE prophylaxis dosing. Consults: none Patient is admitted under inpatient status with expected length of stay greater than 2 midnights due to severity of presenting symptoms, risk of adverse event, and complexity of treatment plan. FEN: IV saline lock, diabetic carb controlled diet, BMP and magnesium in the am. Dispo: Probable discharge to home Code Status: Full code as discussed with patient COVID-19 COVID-19 status: Positive Result date/Date tested (Pos, Neg/Pending): 03/11/20 Quality VTE Deep Vein Thrombosis/Pulmonary Embolism Present on Admission: No
[2020-03-11] MEDS: SODIUM CHLORIDE 0.9% 1,000 ML 100 ML IV (02:51)
--- NOTE | 2020-03-11 03:15 | PC.NURSE ---
Addendum entered by Sofi Orta R.N. 03/11/20 04:43: Pt c/o increased cough. O2 sat 95% RA. Requests Albuterol tx. RT called. Original Note: Pt to room 204 from ER. Able to transfer self to bed. A and O x 3. Denies pain, nausea, dizziness, or shortness of breath. States he has lost his sense of taste. Currently afebrile. Pt changed clothes, voided per urinal, cbg 224, HR tachy-Pt states he is afraid. Spoke with Pt about his plan of care. Gave Pt snacks to eat and water to drink. Pt independent in room. Pt oriented to room, call light, bed controls, and tv controls. Pt agrees ot call for assistance as needed. IVF infusing as ordered.
[2020-03-11] MEDS: ALBUTEROL HFA 200 PUFF/18 GM INH (COVID POS/VENT PTS) INH (05:14)
[2020-03-11 05:51] LABS: Hemoglobin A1C% w Est Avg Glu 9.3 % (4.0-6.0)
[2020-03-11 06:15] LABS: Add Manual Diff / Slide Review NO; Basophils Absolute Auto 0 /uL (0-100); Basophils Percent Auto 0.6 % (0-2); Eosinophils Absolute Auto 0 /uL (0-450); Hematocrit 41.3 % (41-53); Hemoglobin 14.1 g/dL (13.5-17.5); Lymphocytes Absolute Auto 1300 /uL (1100-4500); Lymphocytes Percent Auto 28.4 % (25-40); Mean Corpuscular HGB Conc 34.2 % (30-36); Mean Corpuscular Hemoglobin 28.6 PG (26-34); Mean Corpuscular Volume 83.7 fL (80-100); Monocytes Absolute Auto 600 /uL (0-900); Monocytes Percent Auto 12.8 % (3-14); Neutrophils Absolute Auto 2700 /uL (1500-7000); Neutrophils Percent Auto 58.2 % (50-75); Platelet Count 114 X10^3/uL (150-400); Red Blood Cell Count 4.93 X10^6/uL (4.5-5.9); Red Cell Distribution Width 13.2 % (11.6-14.8); White Blood Cell Count 4.6 X10^3/uL (4.5-11.0)
[2020-03-11 06:27] LABS: BUN Creatinine Ratio 15.8 (6-22); Blood Urea Nitrogen 9 mg/dL (9-20); Calcium 8.2 mg/dL (8.4-10.2); Carbon Dioxide 26 mmol/L (22-32); Chloride 103 mmol/L (98-107); Estimated Glomerular Filt Rate > 60.0 mL/min (>60); Glucose 256 mg/dL (80-110); Potassium 3.9 mmol/L (3.4-5.1); Sodium 133 mmol/L (137-145)
[2020-03-11] MEDS: BENZOCAINE/MENTHOL 1 LOZ PKT 1 EACH PO ×3 (06:52→12:19)
[2020-03-11 08:46] LABS: C-Reactive Protein Quant 2.9 mg/dL (<1.0); HEMOLYSIS 16 (0-50); Lactate Dehydrogenase 601 U/L (313-618)
[2020-03-11] MEDS: INSULIN ASPART 100 UNIT/ML INSULN PEN SUBCUT ×3 (09:00→17:40)
[2020-03-11] MEDS: ENOXAPARIN 40 MG/0.4 ML SYRINGE SUBCUT (09:00)
[2020-03-11] MEDS: LOSARTAN 25 MG TABLET PO (09:01)
[2020-03-11] MEDS: ACETAMINOPHEN 325 MG TABLET 650 MG PO ×4 (09:02→22:13)
[2020-03-11] MEDS: guaiFENesin ER 600 MG TAB 1200 MG PO ×2 (12:19→21:01)
--- NOTE | 2020-03-11 13:17 | CM.IDA ---
Initial DCP Assessment Note Pt is a 59 yo male, resident of [place], admitted w/elevated temp and found to have COVID-19+ pneumonia PCP: None Listed ([facility]?) Payer: Elba Mandujano Reviewed chart, pt discussed in multidisciplinary rounds this morning. According to chart review, patient is indp. 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 Lives w/spouse and children. Taking precautions d/t COVID-19 pandemic, no needs expected from DC planning team although will remain available in case this changes before patient's DC. FLOR Pizarro
[2020-03-11] MEDS: ALBUTEROL/IPRATROPIUM MDI 1 PUFF INH (13:56)
--- NOTE | 2020-03-11 14:29 | PC.NURSE ---
SHIFT SUMMARY: PATIENT DENIES SOB AT REST OR WITH EXERTION. STATES IT'S HIS COUGH THAT IS REALLY BOTHERING HIM. DRY AND HACKING. SAT 95% AT REST AND 95% WITH ACTIVITY. OBTAINED ORDER FOR MUCINEX. HR TACHY 110 AT REST, 120 WITH EXERTION. LOW GRADE TEMP MAX 100.7 THIS SHIFT. MEDICATED W/ TYLENOL X2 THIS SHIFT. DR. ROPER CHANGED PRN TO Q 4HR AND ADDED PRN IBUPROFEN. IVF NOW SL'D PER MD ORDER. BP STABLE. STATES SYMPTOMS STARTED 1 WK AGO AND OVERALL STATES HE FEELS HE IS IMPROVING.
[2020-03-11] MEDS: diphenhydrAMINE 25 MG TABLET PO (17:40)
[2020-03-11] MEDS: IBUPROFEN 600 MG TABLET PO (21:00)
[2020-03-11] MEDS: INSULIN GLARGINE 100 UNIT/ML 3ML PEN 10 UNIT SUBCUT (21:04)
[2020-03-11] MEDS: levoFLOXacin 250 MG TABLET 750 MG PO (21:04)
[2020-03-12] VITALS (12 sets, daily range): BP systolic 130–158; BP diastolic 63–98; PULSE 100–116; RESP 16–22; TEMP 37.1–38.8; O2SAT 93–96
[2020-03-12] MEDS: ACETAMINOPHEN 325 MG TABLET 650 MG PO ×4 (05:44→21:23)
[2020-03-12] MEDS: BENZOCAINE/MENTHOL 1 LOZ PKT 1 EACH PO ×6 (06:00→21:23)
[2020-03-12 06:09] LABS: Add Manual Diff / Slide Review NO; Basophils Absolute Auto 0 /uL (0-100); Basophils Percent Auto 0.5 % (0-2); Eosinophils Absolute Auto 0 /uL (0-450); Hematocrit 41.4 % (41-53); Hemoglobin 14.2 g/dL (13.5-17.5); Lymphocytes Absolute Auto 1200 /uL (1100-4500); Lymphocytes Percent Auto 25.2 % (25-40); Mean Corpuscular HGB Conc 34.3 % (30-36); Mean Corpuscular Hemoglobin 28.4 PG (26-34); Mean Corpuscular Volume 82.8 fL (80-100); Monocytes Absolute Auto 600 /uL (0-900); Monocytes Percent Auto 12.2 % (3-14); Neutrophils Absolute Auto 2900 /uL (1500-7000); Neutrophils Percent Auto 62.1 % (50-75); Platelet Count 109 X10^3/uL (150-400); Red Cell Distribution Width 13.2 % (11.6-14.8); White Blood Cell Count 4.6 X10^3/uL (4.5-11.0)
[2020-03-12 06:24] LABS: Alanine Aminotransferase 43 IU/L (<50); Albumin 3.8 g/dL (3.5-5.0); Albumin Globulin Ratio 1.3 (1.0-2.8); Alkaline Phosphatase 55 U/L (38-126); Aspartate Aminotransferase 58 IU/L (17-59); BUN Creatinine Ratio 13.6 (6-22); Bilirubin Total 0.7 mg/dL (0.2-1.3); Blood Urea Nitrogen 8 mg/dL (9-20); C-Reactive Protein Quant 4.6 mg/dL (<1.0); Calcium 8.3 mg/dL (8.4-10.2); Carbon Dioxide 27 mmol/L (22-32); Chloride 98 mmol/L (98-107); Estimated Glomerular Filt Rate > 60.0 mL/min (>60); Globulin 2.9 g/dL (1.7-4.1); Glucose 216 mg/dL (80-110); HEMOLYSIS 17 (0-50); Lactate Dehydrogenase 879 U/L (313-618); Magnesium 1.5 mg/dL (1.6-2.3); Potassium 3.6 mmol/L (3.4-5.1); Sodium 132 mmol/L (137-145); Total Protein 6.7 g/dL (6.3-8.2)
[2020-03-12 06:41] LABS: Procalcitonin 0.06 ng/mL (<0.5)
[2020-03-12] MEDS: ALBUTEROL HFA 200 PUFF/18 GM INH (COVID POS/VENT PTS) INH (08:00)
[2020-03-12] MEDS: INSULIN ASPART 100 UNIT/ML INSULN PEN SUBCUT ×3 (08:32→21:27)
[2020-03-12] MEDS: LOSARTAN 25 MG TABLET PO (08:33)
[2020-03-12] MEDS: IBUPROFEN 600 MG TABLET PO ×2 (08:33→14:24)
[2020-03-12] MEDS: guaiFENesin ER 600 MG TAB 1200 MG PO ×2 (08:33→21:23)
[2020-03-12] MEDS: ENOXAPARIN 40 MG/0.4 ML SYRINGE SUBCUT (08:33)
[2020-03-12] MEDS: SODIUM CHLORIDE 0.9% FLUSH 10 ML IV (08:34)
[2020-03-12] MEDS: MAGNESIUM CHLORIDE 64 MG TABLET PO (11:41)
--- NOTE | 2020-03-12 12:09 | CM.DPNOTE ---
DCP Cont According to Dr Weller, patient is making good improvement in symptoms, he is not requiring O2. Dr Weller will likely keep patient admitted tonight w/DC home expected tomorrow. P: Home w/family when medically cleared, continue quarantine. No DC needs expected from DCP team, will remain available in case DC needs or concerns arise JW
[2020-03-12] MEDS: ALBUTEROL/IPRATROPIUM MDI 1 PUFF INH (13:32)
--- NOTE | 2020-03-12 13:47 | P.PN_ITS ---
Subjective Subjective Date Patient Seen: 03/12/20 Interval history: Hamilton Keen is a 59-year-old male former smoker with a past medical history significant for hypertension, diabetes mellitus type 2, non-insulin using, asthma, seasonal allergies, and GERD using who presented to the ED for fever, myalgias, dry nonproductive cough, decreased appetite and decreased ability to smell and taste. The patient is resting in a bed and appears comfortable. He reports that he continues to have persistent dry cough which is causing his abdominal muscles to ache. He reports his fever, chills, and myalgias have resolved. He denies headache, shortness of breath, chest pain, nausea, vomiting, fever, chills, dysuria, diarrhea or constipation. He reports his smell and taste are slightly improved today and he ate his lunch. He is voiding and eliminating without difficulty. He is up ambulating independently. Exam Vital Signs (past 8 hours): - 03/12/20 06:00 03/12/20 07:00 03/12/20 08:00 Temperature 102 F H 100.2 F H Pulse Rate 114 H 110 H 116 H Respiratory Rate 18 20 17 Blood Pressure 141/89 H 158/86 H Pulse Oximetry 96 95 95 03/12/20 12:00 03/12/20 13:33 Temperature 98.8 F Pulse Rate 105 H 100 H Respiratory Rate 22 20 Blood Pressure 140/79 Pulse Oximetry 94 94 Oxygen Delivery Method Room Air Oxygen Flow Rate 0 Narrative Exam Narrative: General: Older male sitting in bed in no acute distress, appears mildly ill, well-developed, well-nourished, appropriately interactive. HEENT: Normocephalic, atraumatic. External ears without defect. Pupils equal, round, and reactive to light. Anicteric sclerae, moist conjunctivae, and no lid lag. Oropharynx free of erythema and cobble stoning with moist mucosa. Neck: Supple with full range of motion. No lymphadenopathy or thyromegaly. Cardiovascular: Regular rhythm, mild tachycardia, without murmurs, rubs, or gallops appreciated. Pulmonary:Diminished throughout but clearto auscultation bilaterally without c rackles, wheezes, or rhonchi. Normal respiratory effort with no use of accessory muscles. Abdomen: Soft, obese, bowel sounds present, nontender, nondistended. No hepatosplenomegaly or masses appreciated. Extremities: No clubbing, cyanosis, or edema. Skin: Normal temperature, turgor, and texture; no rash, ulcers, or subcutaneous nodules appreciated. Neurological: Cranial nerves grossly intact. Psychiatric: Mildly anxious mood and normal affect. Alert and oriented to person, place, and time. Objective Labs Result Diagrams: 03/12/20 05:55 03/12/20 05:55 Labs: Laboratory Results - last 24 hr 03/12/20 03/12/20 03/12/20 05:55 05:55 05:55 WBC 4.6 RBC 5.00 Hgb 14.2 Hct 41.4 MCV 82.8 MCH 28.4 MCHC 34.3 RDW 13.2 Plt Count 109 L Neut % (Auto) 62.1 Lymph % (Auto) 25.2 [place] % (Auto) 12.2 Eos % (Auto) 0.0 L Baso % (Auto) 0.5 Neut # (Auto) 2900 Lymph # (Auto) 1200 [place] # (Auto) 600 Eos # (Auto) 0 Baso # (Auto) 0 Sodium 132 L Potassium 3.6 Chloride 98 Carbon Dioxide 27 BUN 8 L Creatinine 0.59 L Estimated GFR > 60.0 BUN/Creatinine Ratio 13.6 Glucose 216 H Calcium 8.3 L Magnesium 1.5 L Total Bilirubin 0.7 AST 58 ALT 43 Alkaline Phosphatase 55 Lactate Dehydrogenase 879 H D C-Reactive Protein 4.6 H Total Protein 6.7 Albumin 3.8 Globulin 2.9 Albumin/Globulin Ratio 1.3 Procalcitonin 0.06 Assessment & Plan Assessment & Plan narrative: Hamilton Keen is a 59-year-old male former smoker with a past medical history significant for hypertension, diabetes mellitus type 2, non-insulin using, asthma, seasonal allergies, and GERD using who presented to the ED for fever, myalgias, dry nonproductive cough, decreased appetite and decreased ability to smell and taste. 1. Acute COVID-19 viral pneumonia with possible superimposed bacterial pneumonia, present on admission. Active. -Patient presented with fever, chills, myalgias, dry nonproductive cough, decreased appetite and decreased ability to smell and taste for 6 days. -Chest x-ray demonstrated mild borderline consolidative airspace opacity in the right lung base and right mid lung. -COVID-19 positive. -Initial LDH 601 trending up now 879. Initial CRP 2.0 and tending up now 4.6. -Initial WBC 7.3 and procalcitonin < 0.05. WBC remains normal and procalcitonin low 0.06. It is unclear whether the patient truly has superimposed bacterial pneumonia as he has no systemic signs of infection including leukocytosis or elevated procalcitonin but will continue a 5 day course of levofloxacin 750 mg daily for consolidation demonstrated on chest x-ray. -Continue symptomatic control as needed: Antipyretic with acetaminophen 650 mg every 4 hours as needed for fever or mild pain, anti-inflammatory with ibuprofen 600 mg every 6 hours as needed for fever or mild pain, and antiemetic with ondansetron 4 mg every 8 hours as needed for nausea or vomiting. -Continue respiratory therapy evaluation and treatment. Continue Combivent inhaler every 6 hours while awake and albuterol inhaler every 2 hours as needed for shortness of breath or wheezing. Continue Mucinex 1200 mg twice daily. May use supplemental oxygen if necessary to maintain oxygen saturations >92%. Patient has not demonstrated any hypoxemia and is saturating mid 90s on room air. -Continue isolation and droplet precautions. 2. Diabetes mellitus type 2, non-insulin using, chronic, present on admission. Stable. -Hemoglobin A1c 9.3% indicative of poor glycemic control. -Held home metformin and glipizide during hospitalization and started Lantus increased from 10 units to 15 units at bedtime. Of note, patient reports that he is likely to start insulin in the near future with a specialist. -Continue blood glucose checks and medium dose correctional scale insulin. -Continue heart healthy/carbohydrate consistent diet. 3. Hypertension, chronic, present on admission. Stable. -Continue home losartan 25 mg daily. 4. GERD, chronic, present on admission. Stable. -Continue home omeprazole 20 mg daily at bedtime. Code Status: Full code as discussed with patient VTE prophylaxis: Enoxaparin Disposition: If patient continues to remain stable overnight and does not decompensate and is not hypoxemic then will likely discharge home tomorrow. Quality VTE Deep Vein Thrombosis/Pulmonary Embolism Present on Admission: No
[2020-03-12] MEDS: PANTOPRAZOLE 20 MG TABLET PO (17:15)
[2020-03-12] MEDS: diphenhydrAMINE 25 MG TABLET PO (17:15)
[2020-03-12] MEDS: INSULIN GLARGINE 100 UNIT/ML 3ML PEN 15 UNIT SUBCUT (21:27)
[2020-03-12] MEDS: levoFLOXacin 250 MG TABLET 750 MG PO (21:37)
[2020-03-13] VITALS (18 sets, daily range): BP systolic 125–178; BP diastolic 74–90; PULSE 105–119; RESP 16–20; TEMP 36.8–39.4; O2SAT 89–95
[2020-03-13] MEDS: ALBUTEROL/IPRATROPIUM MDI 1 PUFF INH ×3 (01:17→15:08)
[2020-03-13] MEDS: IBUPROFEN 600 MG TABLET PO ×3 (01:18→18:05)
--- NOTE | 2020-03-13 03:48 | PC.NURSE ---
0340 Responded to low O2 alarm. O2 saturation is 89% on RA. Pt reports h/o sleep apnea/snoring. Placed on 1LPM via NC, O2 saturation now at 93%.
[2020-03-13 04:55] LABS: Add Manual Diff / Slide Review NO; Basophils Absolute Auto 0 /uL (0-100); Basophils Percent Auto 0.3 % (0-2); Eosinophils Absolute Auto 0 /uL (0-450); Hematocrit 40.4 % (41-53); Hemoglobin 13.8 g/dL (13.5-17.5); Lymphocytes Absolute Auto 900 /uL (1100-4500); Lymphocytes Percent Auto 19.8 % (25-40); Mean Corpuscular HGB Conc 34.2 % (30-36); Mean Corpuscular Hemoglobin 28.2 PG (26-34); Mean Corpuscular Volume 82.6 fL (80-100); Monocytes Absolute Auto 400 /uL (0-900); Monocytes Percent Auto 9.3 % (3-14); Neutrophils Absolute Auto 3200 /uL (1500-7000); Neutrophils Percent Auto 70.6 % (50-75); Platelet Count 109 X10^3/uL (150-400); Red Cell Distribution Width 12.8 % (11.6-14.8); White Blood Cell Count 4.6 X10^3/uL (4.5-11.0)
[2020-03-13 05:05] LABS: BUN Creatinine Ratio 14.1 (6-22); Blood Urea Nitrogen 9 mg/dL (9-20); Calcium 8.1 mg/dL (8.4-10.2); Carbon Dioxide 27 mmol/L (22-32); Chloride 96 mmol/L (98-107); Estimated Glomerular Filt Rate > 60.0 mL/min (>60); Glucose 231 mg/dL (80-110); HEMOLYSIS < 15 (0-50); Lactate Dehydrogenase 1138 U/L (313-618); Magnesium 1.7 mg/dL (1.6-2.3); Potassium 3.5 mmol/L (3.4-5.1); Sodium 131 mmol/L (137-145)
[2020-03-13 05:21] LABS: Procalcitonin 0.07 ng/mL (<0.5)
[2020-03-13] MEDS: BENZOCAINE/MENTHOL 1 LOZ PKT 1 EACH PO ×4 (06:46→22:48)
[2020-03-13] MEDS: DEXAMETHASONE 10 MG/ML VIAL 6 MG IV (06:46)
[2020-03-13] MEDS: INSULIN ASPART 100 UNIT/ML INSULN PEN SUBCUT ×4 (08:47→22:49)
[2020-03-13] MEDS: REMDESIVIR 200 MG in SODIUM CHLORIDE 0.9% 210 ML 250 ML IV (08:47)
[2020-03-13] MEDS: ENOXAPARIN 40 MG/0.4 ML SYRINGE SUBCUT (08:48)
[2020-03-13] MEDS: LORATADINE 10 MG TABLET PO (08:49)
[2020-03-13] MEDS: ACETAMINOPHEN 325 MG TABLET 650 MG PO ×3 (08:49→22:50)
[2020-03-13] MEDS: guaiFENesin ER 600 MG TAB 1200 MG PO ×2 (08:49→22:51)
[2020-03-13] MEDS: SODIUM CHLORIDE 0.9% FLUSH 10 ML IV ×2 (08:50→22:52)
[2020-03-13] MEDS: MAGNESIUM CHLORIDE 64 MG TABLET PO ×2 (08:54→22:51)
[2020-03-13] MEDS: LOSARTAN 25 MG TABLET PO (08:54)
[2020-03-13] MEDS: ALBUTEROL HFA 200 PUFF/18 GM INH (COVID POS/VENT PTS) INH (09:00)
[2020-03-13] MEDS: diphenhydrAMINE 25 MG TABLET PO (17:20)
[2020-03-13] MEDS: PANTOPRAZOLE 20 MG TABLET PO (17:20)
--- NOTE | 2020-03-13 17:34 | P.PN_ITS ---
Subjective Subjective Date Patient Seen: 03/13/20 Interval history: Hamilton Keen is a 59-year-old male former smoker with a past medical history significant for hypertension, diabetes mellitus type 2, non-insulin using, asthma, MELISSA on CPAP, seasonal allergies, and GERD using who presented to the ED for fever, myalgias, dry nonproductive cough, decreased appetite and decreased ability to smell and taste. The patient is resting in a bed and appears comfortable. He reports that he continues to have persistent dry cough with paroxysms which is causing his abdominal muscles to ache. He continues to have intermittent high fevers. He had mild hypoxemia overnight and was started on 1-2 L supplemental oxygen. Discussed possible apnea while sleeping in which the patient informs me that he has obstructive sleep apnea and is on CPAP at home and question whether his hypoxemia overnight was due to his MELISSA or true hypoxemia. Patient was started on dexamethasone and remdesivir. He denies headache, shortness of breath, chest pain, nausea, vomiting, fever, chills, dysuria, diarrhea or constipation. He reports his smell and taste are slightly improved. He is voiding and elimi nating without difficulty. He is up ambulating independently. Exam Vital Signs (past 8 hours): - 03/13/20 10:20 03/13/20 10:21 03/13/20 15:00 Pulse Rate 105 H Respiratory Rate 20 Pulse Oximetry 90 L 93 94 Oxygen Delivery Method Nasal Cannula Oxygen Flow Rate 2 Narrative Exam Narrative: General: Older male sitting in bed in no acute distress, appears mildly ill, well-developed, well-nourished, appropriately interactive. HEENT: Normocephalic, atraumatic. External ears without defect. Pupils equal, round, and reactive to light. Anicteric sclerae, moist conjunctivae, and no lid lag. Oropharynx free of erythema and cobble stoning with moist mucosa. Neck: Supple with full range of motion. No lymphadenopathy or thyromegaly. Cardiovascular: Regular rhythm, mild tachycardia, without murmurs, rubs, or gallops appreciated. Pulmonary: Diminished throughout with slightly less air movement but clear to auscultation bilaterally without crackles, wheezes, or rhonchi. Normal respiratory effort with no use of accessory muscles. Abdomen: Soft, obese and protuberant, bowel sounds present, nontender, nondistended. No hepatosplenomegaly or masses appreciated. Extremities: No clubbing, cyanosis, or edema. Skin: Normal temperature, turgor, and texture; no rash, ulcers, or subcutaneous nodules appreciated. Neurological: Cranial nerves grossly intact. Psychiatric: Mildly anxious mood and normal affect. Alert and oriented to person, place, and time. Objective Labs Result Diagrams: 03/13/20 04:40 03/13/20 04:40 Labs: Laboratory Results - last 24 hr 03/13/20 03/13/20 03/13/20 04:40 04:40 04:40 WBC 4.6 RBC 4.90 Hgb 13.8 Hct 40.4 L MCV 82.6 MCH 28.2 MCHC 34.2 RDW 12.8 Plt Count 109 L Neut % (Auto) 70.6 Lymph % (Auto) 19.8 L [place] % (Auto) 9.3 Eos % (Auto) 0.0 L Baso % (Auto) 0.3 Neut # (Auto) 3200 Lymph # (Auto) 900 L [place] # (Auto) 400 Eos # (Auto) 0 Baso # (Auto) 0 Sodium 131 L Potassium 3.5 Chloride 96 L Carbon Dioxide 27 BUN 9 Creatinine 0.64 L Estimated GFR > 60.0 BUN/Creatinine Ratio 14.1 Glucose 231 H Calcium 8.1 L Magnesium 1.7 Lactate Dehydrogenase 1138 H C-Reactive Protein 6.0 H Procalcitonin 0.07 Assessment & Plan Assessment & Plan narrative: Hamilton Keen is a 59-year-old male former smoker with a past medical history significant for hypertension, diabetes mellitus type 2, non-insulin using, asthma, seasonal allergies, and GERD using who presented to the ED for fever, myalgias, dry nonproductive cough, decreased appetite and decreased ability to s thor and taste. 1. Acute COVID-19 viral pneumonia with possible superimposed bacterial pneumonia, present on admission. Active. -Patient presented with fever, chills, myalgias, dry nonproductive cough, decreased appetite and decreased ability to smell and taste for 6 days. -Chest x-ray demonstrated mild borderline consolidative airspace opacity in the right lung base and right mid lung. -COVID-19 positive. -Initial LDH 601 trending up now 1138. Initial CRP 2.0 and tending up now 6.0. -Initial WBC 7.3 and procalcitonin < 0.05. WBC remains normal and procalcitonin low 0.07. It is unclear whether the patient truly has superimposed bacterial pneumonia as he has no systemic signs of infection including leukocytosis or elevated procalcitonin but will continue a 5 day course of levofloxacin 750 mg daily for consolidation demonstrated on chest x-ray. -Continue symptomatic control as needed: Antipyretic with acetaminophen 650 mg every 4 hours as needed for fever or mild pain, anti-inflammatory with ibuprofen 600 mg every 6 hours as needed for fever or mild pain, codeine with guaifenesin 5 mL every 6 hours as needed for cough paroxysms and antiemetic with ondansetron 4 mg every 8 hours as needed for nausea or vomiting. -Continue respiratory therapy evaluation and treatment. Continue Combivent inhaler every 6 hours while awake and albuterol inhaler every 2 hours as needed for shortness of breath or wheezing. Continue Mucinex 1200 mg twice daily. Continue supplemental oxygen to maintain oxygen saturations >92% and titrate off as tolerated. -Continue negative pressure isolation and droplet precautions. -Continue dexamethasone 6 mg daily all hospitalized or 10 days whichever comes 1st and remdesivir 200 mg IV x1 today and 100 mg IV daily for 5 days or until discharge. 2. Acute hypoxemic respiratory failure, not present on admission. Active. -Patient had mild desaturation overnight on 03/12 and question whether this is true hypoxemia or MELISSA as he was not on CPAP. Patient has asthma and is high risk of pulmonary decompensation. -Continue respiratory therapy evaluation and treatment. Continue supplemental oxygen to maintain oxygen saturations >92% and titrate off as tolerated. Continue to treat COVID 19 viral pneumonia as above. 3. Obstructive sleep apnea on CPAP, chronic, present on admission. Stable. -Question whether patient's hypoxemia overnight was apnea versus true hypoxemia and inpatient informed me that he has MELISSA. -Patient's spouse to bring in home CPAP. Continue home CPAP per RT protocol. 4. Diabetes mellitus type 2, non-insulin using, chronic, present on admission. Stable. -Hemoglobin A1c 9.3% indicative of poor glycemic control. -Held home metformin and glipizide during hospitalization and started Lantus increased from 15 units to 20 units at bedtime due to better control blood glucose in setting of glucocorticoid. Of note, patient reports that he is planning to start insulin in the near future with a specialist. -Continue blood glucose checks and medium dose correctional scale insulin. -Continue heart healthy/carbohydrate consistent diet. 5. Hypertension, chronic, present on admission. Stable. -Continue home losartan 25 mg daily. 6. GERD, chronic, present on admission. Stable. -Continue home omeprazole 20 mg daily at bedtime. Code Status: Full code as discussed with patient VTE prophylaxis: Enoxaparin Disposition: Patient remains hospitalized and will discharge home once hypoxemia improved. Quality VTE Deep Vein Thrombosis/Pulmonary Embolism Present on Admission: No
[2020-03-13] MEDS: CODEINE/GUAIFENESIN LIQUID 5ML UDC 5 ML PO (19:05)
[2020-03-13] MEDS: POTASSIUM CHLORIDE 20 MEQ TAB 40 MEQ PO (19:05)
[2020-03-13] MEDS: INSULIN GLARGINE 100 UNIT/ML 3ML PEN 20 UNIT SUBCUT (22:48)
[2020-03-13] MEDS: levoFLOXacin 250 MG TABLET 750 MG PO (22:51)
--- NOTE | 2020-03-13 23:05 | PC.NURSE ---
COVID+ pt. requires insulin. Dry cough, diminished but clear. Pt 2L NC satting well around 94-95%. Afebrile. Pain on coughing. Anxious. Tolerates medications well.
[2020-03-14] VITALS (14 sets, daily range): BP systolic 119–144; BP diastolic 63–78; PULSE 101–109; RESP 16–28; TEMP 36.8–37.5; O2SAT 91–95
--- NOTE | 2020-03-14 02:59 | PC.NURSE ---
Pt resting comfortably w/CPAP in place. Infrequent dry, non-productive cough - pt is not requesting meds, denies pain.
[2020-03-14] MEDS: BENZOCAINE/MENTHOL 1 LOZ PKT 1 EACH PO ×6 (03:49→19:40)
[2020-03-14] MEDS: ACETAMINOPHEN 325 MG TABLET 650 MG PO ×4 (03:50→22:32)
[2020-03-14] MEDS: CODEINE/GUAIFENESIN LIQUID 5ML UDC 5 ML PO ×4 (03:50→22:31)
[2020-03-14] MEDS: ALBUTEROL/IPRATROPIUM MDI 1 PUFF INH ×2 (03:59→14:33)
[2020-03-14 06:13] LABS: Add Manual Diff / Slide Review NO; Basophils Absolute Auto 0 /uL (0-100); Basophils Percent Auto 0.2 % (0-2); Eosinophils Absolute Auto 0 /uL (0-450); Lymphocytes Absolute Auto 700 /uL (1100-4500); Lymphocytes Percent Auto 14.9 % (25-40); Mean Corpuscular HGB Conc 34.1 % (30-36); Mean Corpuscular Hemoglobin 28.2 PG (26-34); Mean Corpuscular Volume 82.5 fL (80-100); Monocytes Absolute Auto 600 /uL (0-900); Monocytes Percent Auto 13.6 % (3-14); Neutrophils Absolute Auto 3200 /uL (1500-7000); Neutrophils Percent Auto 71.3 % (50-75); Platelet Count 135 X10^3/uL (150-400); Red Blood Cell Count 4.97 X10^6/uL (4.5-5.9); White Blood Cell Count 4.5 X10^3/uL (4.5-11.0)
[2020-03-14 06:19] LABS: Lactate Dehydrogenase 1517 U/L (313-618)
[2020-03-14 06:24] LABS: Alanine Aminotransferase 59 IU/L (<50); Albumin 3.5 g/dL (3.5-5.0); Albumin Globulin Ratio 1.2 (1.0-2.8); Alkaline Phosphatase 57 U/L (38-126); Aspartate Aminotransferase 82 IU/L (17-59); Bilirubin Total 0.7 mg/dL (0.2-1.3); Blood Urea Nitrogen 14 mg/dL (9-20); Calcium 8.5 mg/dL (8.4-10.2); Carbon Dioxide 28 mmol/L (22-32); Chloride 100 mmol/L (98-107); Estimated Glomerular Filt Rate > 60.0 mL/min (>60); Glucose 272 mg/dL (80-110); HEMOLYSIS < 15 (0-50); Magnesium 1.9 mg/dL (1.6-2.3); Potassium 4.1 mmol/L (3.4-5.1); Sodium 133 mmol/L (137-145); Total Protein 6.5 g/dL (6.3-8.2)
[2020-03-14 06:39] LABS: Procalcitonin < 0.05 ng/mL (<0.5)
[2020-03-14] MEDS: ENOXAPARIN 40 MG/0.4 ML SYRINGE SUBCUT (08:25)
[2020-03-14] MEDS: guaiFENesin ER 600 MG TAB 1200 MG PO (08:25)
[2020-03-14] MEDS: LORATADINE 10 MG TABLET PO (08:28)
[2020-03-14] MEDS: MAGNESIUM CHLORIDE 64 MG TABLET PO ×2 (08:29→22:44)
[2020-03-14] MEDS: REMDESIVIR 100 MG in SODIUM CHLORIDE 0.9% 230 ML 250 ML IV (08:29)
[2020-03-14] MEDS: SODIUM CHLORIDE 0.9% FLUSH 10 ML IV ×2 (08:29→22:46)
[2020-03-14] MEDS: INSULIN ASPART 100 UNIT/ML INSULN PEN SUBCUT ×4 (08:32→22:26)
[2020-03-14] MEDS: DEXAMETHASONE 10 MG/ML VIAL 6 MG IV (08:41)
[2020-03-14] MEDS: LOSARTAN 25 MG TABLET PO (08:43)
[2020-03-14] MEDS: ALBUTEROL HFA 200 PUFF/18 GM INH (COVID POS/VENT PTS) INH (08:52)
--- NOTE | 2020-03-14 09:49 | PC.NURSE ---
Addendum entered by Soheila Kim R.N. 03/14/20 12:30: Lunch tray passed to patient, patient has diminished appetite but is drinking fluids. Reports he feels a notable improvement in WOB, reports decreased effort. Feels the cough syrup is helping. Patients O2 remains 93-94%, remains on PAP @ 4L. Patient used PRN inhaler while this RN was in the room. Addendum entered by Soheila Kim R.N. 03/14/20 11:12: Patient c/o increasing cough with pain radiating to ribs, administered PRN Tylenol, lonzenge and codeine guaifenesin. Patient wearing CPAP currently at 4 L, patient 92-94%, maintaining oxygen saturations >92% at this time. Albuturol inhaler remains at bedside. Call light in reach. Denies further needs at this time. Original Note: Assumed care of patient at 0800. Patient is A/O x4. Wearing PAP. Saline locked RAC at this time, IV flushed and antiviral started. Patient tolerating. Patient given PRN breathing treatment with RT. PRN Inhaler remains bedside. Patient reports cough frequency is decreasing, still dry, lungs clear, diminished bilaterally. Pulses equal bilaterally, no edema noted. Patient up independently. Denies dizziness, chest pain, numbness or tingling in the extremities. Last BM 03/12. SCD's on bilaterally. Patient reminded to call before getting OOB. Denies further needs at this time. Call light in reach.
[2020-03-14] MEDS: IBUPROFEN 600 MG TABLET PO ×2 (12:09→19:40)
--- NOTE | 2020-03-14 15:45 | P.PN_ITS ---
Subjective Subjective Date Patient Seen: 03/14/20 Interval history: Patient continues to have significant coughing. He has noted to be hypoxic on room air. His oxygen saturation drops to 90% on room air. He is on CPAP. On 4 L he is able to maintain an O2 sat of 93%. Patient denies any nausea or vomiting. He has no chest pain. He is anxious to go home. Exam Vital Signs (past 8 hours): - 03/14/20 08:32 03/14/20 08:43 03/14/20 08:52 Temperature 98.2 F Pulse Rate 109 H 109 H 101 H Respiratory Rate 17 21 Blood Pressure 129/69 128/69 Pulse Oximetry 94 93 03/14/20 11:20 03/14/20 14:29 03/14/20 14:31 Temperature 99.5 F Pulse Rate 105 H Respiratory Rate 16 Blood Pressure 119/63 Pulse Oximetry 94 95 91 03/14/20 14:32 03/14/20 14:33 Temperature Pulse Rate 101 H Respiratory Rate 19 Blood Pressure Pulse Oximetry 93 93 Fraction of Inspired Oxygen 2 Oxygen Delivery Method Nasal Cannula Oxygen Flow Rate 2 Narrative Exam Narrative: Pleasant gentleman resting comfortably somewhat anxious Lungs: Decreased breath sounds bilateral Cardiac exam: Tachycardic regular rate and rhythm normal S1-S2 Abdomen: Soft nontender nondistended Extremities: No edema Objective Labs Result Diagrams: 03/14/20 05:55 03/14/20 05:55 Labs: Laboratory Results - last 24 hr 03/14/20 03/14/20 03/14/20 05:55 05:55 05:55 WBC 4.5 RBC 4.97 Hgb 14.0 Hct 41.0 MCV 82.5 MCH 28.2 MCHC 34.1 RDW 13.0 Plt Count 135 L Neut % (Auto) 71.3 Lymph % (Auto) 14.9 L [place] % (Auto) 13.6 Eos % (Auto) 0.0 L Baso % (Auto) 0.2 Neut # (Auto) 3200 Lymph # (Auto) 700 L [place] # (Auto) 600 Eos # (Auto) 0 Baso # (Auto) 0 Sodium 133 L Potassium 4.1 Chloride 100 Carbon Dioxide 28 BUN 14 Creatinine 0.61 L Estimated GFR > 60.0 BUN/Creatinine Ratio 23.0 H Glucose 272 H Calcium 8.5 Magnesium 1.9 Total Bilirubin 0.7 AST 82 H ALT 59 H Alkaline Phosphatase 57 Lactate Dehydrogenase Total Protein 6.5 Albumin 3.5 Globulin 3.0 Albumin/Globulin Ratio 1.2 Procalcitonin < 0.05 03/14/20 05:55 WBC RBC Hgb Hct MCV MCH MCHC RDW Plt Count Neut % (Auto) Lymph % (Auto) [place] % (Auto) Eos % (Auto) Baso % (Auto) Neut # (Auto) Lymph # (Auto) [place] # (Auto) Eos # (Auto) Baso # (Auto) Sodium Potassium Chloride Carbon Dioxide BUN Creatinine Estimated GFR BUN/Creatinine Ratio Glucose Calcium Magnesium Total Bilirubin AST ALT Alkaline Phosphatase Lactate Dehydrogenase 1517 H Total Protein Albumin Globulin Albumin/Globulin Ratio Procalcitonin [facility] Medical History Acid reflux Asthma Diabetes mellitus High blood pressure Pollen allergies Surgical History No history of previous surgery Family History Father Old age Mother Healthy adult Other Family history of allergies Social History household members: spouse and children Smoking Status: Former smoker alcohol intake: current Assessment & Plan Assessment & Plan narrative: Acute COVID-19 viral pneumonia with possible superimposed bacterial pneumonia, present on admission. Active. -Patient presented with fever, chills, myalgias, dry nonproductive cough, decreased appetite and decreased ability to smell and taste for 6 days. -Chest x-ray demonstrated mild borderline consolidative airspace opacity in the right lung base and right mid lung. -COVID-19 positive. -continue dexamethasone and remdesivir -continue oxygen taper -CPAP at night -home when no longer hypoxic at rest and or with activity 2. Acute hypoxemic respiratory failure, not present on admission. Active. -Patient had mild desaturation overnight on 03/12 and question whether this is t rue hypoxemia or MELISSA as he was not on CPAP. Patient has asthma and is high risk of pulmonary decompensation. -Continue respiratory therapy evaluation and treatment. Continue supplemental oxygen to maintain oxygen saturations >92% and titrate off as tolerated. Continue to treat COVID 19 viral pneumonia as above. -CPAP at night -will check rest and exercise O2 sat 3. Obstructive sleep apnea on CPAP, chronic, present on admission. Stable. -Question whether patient's hypoxemia overnight was apnea versus true hypoxemia and inpatient informed me that he has MELISSA. -Patient's spouse to bring in home CPAP. Continue home CPAP per RT protocol. 4. Diabetes mellitus type 2, non-insulin using, chronic, present on admission. Stable. -Hemoglobin A1c 9.3% indicative of poor glycemic control. -Held home metformin and glipizide during hospitalization and started Lantus increased from 15 units to 20 units at bedtime due to better control blood glucose in setting of glucocorticoid. Of note, patient reports that he is planning to start insulin in the near future with a specialist. -Continue blood glucose checks and medium dose correctional scale insulin. -Continue heart healthy/carbohydrate consistent diet. 5. Hypertension, chronic, present on admission. Stable. -Continue home losartan 25 mg daily. 6. GERD, chronic, present on admission. Stable. -Continue home omeprazole 20 mg daily at bedtime. Code Status: Full code as discussed with patient VTE prophylaxis: Enoxaparin Quality VTE Deep Vein Thrombosis/Pulmonary Embolism Present on Admission: No
[2020-03-14] MEDS: diphenhydrAMINE 25 MG TABLET PO (17:15)
[2020-03-14] MEDS: PANTOPRAZOLE 20 MG TABLET PO (17:15)
--- NOTE | 2020-03-14 19:02 | PC.NURSE ---
EVENING SHIFT Report received, care assumed 1530. COVID precautions recognized. Pt. A&Ox3. Requiring 2LNC oxygen, sats at rest 93%. Only reported pain is thoracic pain r/t coughing; managed with PO PRN's medications. Semi-productive cough, though pt. states it's not enough to spit up, just swallowing. Moving independently in room. Blood sugar elevated, managed with sliding scale.
[2020-03-14] MEDS: levoFLOXacin 250 MG TABLET 750 MG PO (22:32)
[2020-03-14] MEDS: INSULIN GLARGINE 100 UNIT/ML 3ML PEN 24 UNIT SUBCUT (23:22)
[2020-03-15] VITALS (13 sets, daily range): BP systolic 128–144; BP diastolic 71–82; PULSE 89–108; RESP 18–24; TEMP 36.4–36.9; O2SAT 89–97
[2020-03-15] MEDS: CODEINE/GUAIFENESIN LIQUID 5ML UDC 5 ML PO ×3 (04:31→19:00)
[2020-03-15] MEDS: ALBUTEROL/IPRATROPIUM MDI 1 PUFF INH ×3 (07:52→20:45)
[2020-03-15] MEDS: ALBUTEROL HFA 200 PUFF/18 GM INH (COVID POS/VENT PTS) INH ×2 (07:52→14:02)
[2020-03-15] MEDS: DEXAMETHASONE 10 MG/ML VIAL 6 MG IV (07:53)
[2020-03-15] MEDS: INSULIN ASPART 100 UNIT/ML INSULN PEN SUBCUT ×4 (07:53→20:54)
[2020-03-15] MEDS: SODIUM CHLORIDE 0.9% FLUSH 10 ML IV ×2 (07:55→21:24)
[2020-03-15] MEDS: LOSARTAN 25 MG TABLET PO (07:56)
[2020-03-15] MEDS: MAGNESIUM CHLORIDE 64 MG TABLET PO ×2 (07:56→20:54)
[2020-03-15] MEDS: guaiFENesin ER 600 MG TAB 1200 MG PO (07:56)
[2020-03-15] MEDS: ENOXAPARIN 40 MG/0.4 ML SYRINGE SUBCUT (07:56)
[2020-03-15] MEDS: REMDESIVIR 100 MG in SODIUM CHLORIDE 0.9% 230 ML 250 ML IV (08:04)
--- NOTE | 2020-03-15 10:33 | DI.CT.S_ITS ---
PROCEDURE: CT ANGIO CHEST PE PROTOCOL INDICATIONS: r/o PE, COVID-19 PNA TECHNIQUE: After the administration of intravenous contrast, 2 mm thick sections acquired from the pulmonary apices to the posterior costophrenic angles. 3-dimensional maximum intensity projection (MIP) coronal and sagittal reformats were then acquired through the thorax. For radiation dose reduction, the following was used: automated exposure control, adjustment of mA and/or kV according to patient size. COMPARISON: [facility], CR, XR CHEST 1V, 03/10/2020, 19:59. FINDINGS: Image quality: Excellent. Pulmonary arteries: Pulmonary arteries are normal in size, and demonstrate no intraluminal filling defects to suggest central pulmonary embolism. Lungs and pleura: The lungs demonstrate patchy and confluent areas of opacity much of which appears ground-glass in appearance. It is prominent in both the upper and lower lobes. Mediastinum: Heart size is normal, without pericardial effusion. No mediastinal or hilar adenopathy. Thoracic aorta is normal in caliber and enhancement. Esophagus is normal in caliber, without hiatal hernia. Bones and chest wall: No suspicious bony lesions. Ribs and thoracic spine appear intact throughout. Thyroid gland is unremarkable . No axillary or supraclavicular adenopathy. Abdomen: Visualized upper abdominal solid organs appear normal in the early arterial phase of enhancement. IMPRESSION: 1. No pulmonary embolism. 2. Patchy and confluent areas of opacity including ground-glass opacity within the lungs bilaterally as above. Overall appearance is most consistent with multifocal pneumonia. Dictated by: Letitia Flood M.D. on 03/15/2020 at 10:24 Approved by: Letitia Flood M.D. on 03/15/2020 at 11:00
[2020-03-15] MEDS: IBUPROFEN 600 MG TABLET PO ×2 (12:28→19:00)
[2020-03-15] MEDS: LORATADINE 10 MG TABLET PO (12:28)
[2020-03-15] MEDS: PSEUDOEPHEDRINE 30 MG TABLET PO (12:28)
--- NOTE | 2020-03-15 13:55 | PC.NURSE ---
Day Shift- Pt A&OX4, able to make his needs known using call light. pt prefers to wear a simple surgical mask over his nose area. Pt has intermittent dry cough with reported clear thick sputum production. AE very diminished throughout lung ledezma. O2 89-91% on 6L HF NC, on continuous O2 monitoring. Have consulted with RT several times today regarding care and assessment. Pt has had very limited food intake today, does drink water frequently. Pt OOB with SBA, states feeling overall weak and tired. Supportive care given. Call light within reach.
--- NOTE | 2020-03-15 16:52 | P.PN_ITS ---
Subjective Subjective Date Patient Seen: 03/15/20 Interval history: Patient continues to have progressive hypoxemia. He is using his CPAP at night. He is on 8-10 L high-flow oxygen to maintain a saturation of 93-94%. Patient continues to have a cough which is improved with codeine cough syrup. He is on a ventilator and Combivent inhalers. Will add a budesonide inhaler as well. Exam Vital Signs (past 8 hours): - 03/15/20 12:00 03/15/20 12:45 03/15/20 14:03 Temperature 97.9 F Pulse Rate 103 H 108 H Respiratory Rate 20 20 Blood Pressure 128/71 Pulse Oximetry 90 L 90 L 89 L 03/15/20 16:14 Temperature Pulse Rate Respiratory Rate Blood Pressure Pulse Oximetry 94 Fraction of Inspired Oxygen 2 Oxygen Delivery Method High Flow Nasal Cannula Oxygen Flow Rate 6 Narrative Exam Narrative: Pleasant gentleman somewhat short of breath with minimal exertion Lungs: Decreased breath sounds bilaterally Cardiac exam: Regular rate and rhythm normal S1-S2 Abdomen: Soft nontender nondistended Extremities: No edema Objective Labs Result Diagrams: 03/14/20 05:55 03/14/20 05:55 [facility] Medical History Acid reflux Asthma Diabetes mellitus High blood pressure Pollen allergies Surgical History No history of previous surgery Family History Father Old age Mother Healthy adult Other Family history of allergies Social History household members: spouse and children Smoking Status: Former smoker alcohol intake: current Assessment & Plan Assessment & Plan narrative: Acute COVID-19 viral pneumonia with possible supe rimposed bacterial pneumonia, present on admission. Active. -Patient presented with fever, chills, myalgias, dry nonproductive cough, decreased appetite and decreased ability to smell and taste for 6 days. -Chest x-ray demonstrated mild borderline consolidative airspace opacity in the right lung base and right mid lung. -COVID-19 positive. -continue dexamethasone and remdesivir -continue oxygen as needed -CPAP at night -CT angio-reveals no PE, bilateral alveolar infiltrates noted -Patient to continue proning as tolerated 2. Acute hypoxemic respiratory failure, not present on admission. Active. -Patient had mild desaturation overnight on 03/12 and question whether this is true hypoxemia or MELISSA as he was not on CPAP. Patient has asthma and is high risk of pulmonary decompensation. -Continue respiratory therapy evaluation and treatment. Continue supplemental oxygen to maintain oxygen saturations >92% and titrate off as tolerated. Continue to treat COVID 19 viral pneumonia as above. -CPAP at night -will check rest and exercise O2 sat -patient with a history of asthma -will add steroid inhaler to regimen, continue oxygen, ventolin, combivent for now 3. Obstructive sleep apnea on CPAP, chronic, present on admission. Stable. -Question whether patient's hypoxemia overnight was apnea versus true hypoxemia and inpatient informed me that he has MELISSA. -Patient's spouse to bring in home CPAP. Continue home CPAP per RT protocol. 4. Diabetes mellitus type 2, non-insulin using, chronic, present on admission. Stable. -Hemoglobin A1c 9.3% indicative of poor glycemic control. -Held home metformin and glipizide during hospitalization and started Lantus increased from 15 units to 20 units at bedtime due to better control blood glucose in setting of glucocorticoid. Of note, patient reports that he is planning to start insulin in the near future with a specialist. -Continue blood glucose checks and medium dose correctional scale insulin. -Continue heart healthy/carbohydrate consistent diet. -will increase basal insulin as steroids likely increasing sugars 5. Hypertension, chronic, present on admission. Stable. -Continue home losartan 25 mg daily. 6. GERD, chronic, present on admission. Stable. -Continue home omeprazole 20 mg daily at bedtime. Code Status: Full code as discussed with patient VTE prophylaxis: Enoxaparin Quality VTE Deep Vein Thrombosis/Pulmonary Embolism Present on Admission: No
[2020-03-15] MEDS: diphenhydrAMINE 25 MG TABLET PO (17:01)
[2020-03-15] MEDS: ACETAMINOPHEN 325 MG TABLET 650 MG PO (17:01)
[2020-03-15] MEDS: PANTOPRAZOLE 20 MG TABLET PO (17:02)
[2020-03-15] MEDS: BENZOCAINE/MENTHOL 1 LOZ PKT 1 EACH PO (19:00)
[2020-03-15] MEDS: BUDESONIDE 90mcg FLEXHALER (60 PUFF/DEVICE) INH (20:44)
[2020-03-15] MEDS: guaiFENesin ER 600 MG TAB PO (20:56)
[2020-03-15] MEDS: INSULIN GLARGINE 100 UNIT/ML 3ML PEN 30 UNIT SUBCUT (20:56)
--- NOTE | 2020-03-15 21:38 | PC.NURSE ---
Pt transferred from rm 219 to rm 230 for higher level of care. Placed on monitor, hiflo nasal cannula @ 6L maintaining O2 sats @ 92-94%. Desats briefly with activity. Encouraged to self prone as much as possible. Alert and oriented, cooperative with care. HR 90-low 100's. Hans breath sounds with fine crackles posteriorly, Non productive cough. Will monitor closely.
--- NOTE | 2020-03-15 22:32 | PC.NURSE ---
2230 pt placed on HIFLO nasal cannula settings 40L 75%FIO2. ABg done prior showed PO2 59. Hospitalist notified.
[2020-03-15 22:55] LABS: Fractionated Inspired Oxygen 44; HCO3 ABG 25 mmol/L (22-26); Oxygen Saturation ABG 92 % (95-100); PO2 ABG 59 mmHg (80-100); TCO2 ABG 26 mmol/L (21-31); pH ABG 7.48 (7.35-7.45)
[2020-03-16] VITALS (14 sets, daily range): BP systolic 121–154; BP diastolic 56–72; PULSE 82–115; RESP 20–24; TEMP 35.9–36.6; O2SAT 87–98
[2020-03-16] MEDS: CODEINE/GUAIFENESIN LIQUID 5ML UDC 5 ML PO ×4 (00:05→17:46)
[2020-03-16] MEDS: BENZOCAINE/MENTHOL 1 LOZ PKT 1 EACH PO (04:30)
[2020-03-16] MEDS: IBUPROFEN 600 MG TABLET PO (04:34)
[2020-03-16] MEDS: ACETAMINOPHEN 325 MG TABLET 650 MG PO ×4 (04:35→21:14)
[2020-03-16 04:47] LABS: Add Manual Diff / Slide Review NO; Basophils Absolute Auto 0 /uL (0-100); Basophils Percent Auto 0.1 % (0-2); Eosinophils Absolute Auto 0 /uL (0-450); Hematocrit 42.2 % (41-53); Hemoglobin 14.5 g/dL (13.5-17.5); Lymphocytes Absolute Auto 1000 /uL (1100-4500); Lymphocytes Percent Auto 13.7 % (25-40); Mean Corpuscular HGB Conc 34.3 % (30-36); Mean Corpuscular Hemoglobin 28.3 PG (26-34); Mean Corpuscular Volume 82.5 fL (80-100); Monocytes Absolute Auto 900 /uL (0-900); Monocytes Percent Auto 12.6 % (3-14); Neutrophils Absolute Auto 5300 /uL (1500-7000); Neutrophils Percent Auto 73.6 % (50-75); Platelet Count 196 X10^3/uL (150-400); Red Blood Cell Count 5.12 X10^6/uL (4.5-5.9); Red Cell Distribution Width 12.9 % (11.6-14.8); White Blood Cell Count 7.2 X10^3/uL (4.5-11.0)
[2020-03-16 04:54] LABS: Lactate Dehydrogenase 1677 U/L (313-618)
[2020-03-16 05:02] LABS: Alanine Aminotransferase 59 IU/L (<50); Albumin 3.4 g/dL (3.5-5.0); Albumin Globulin Ratio 1.1 (1.0-2.8); Alkaline Phosphatase 57 U/L (38-126); Aspartate Aminotransferase 68 IU/L (17-59); BUN Creatinine Ratio 22.7 (6-22); Bilirubin Total 0.7 mg/dL (0.2-1.3); Blood Urea Nitrogen 15 mg/dL (9-20); Calcium 8.4 mg/dL (8.4-10.2); Carbon Dioxide 32 mmol/L (22-32); Chloride 100 mmol/L (98-107); Estimated Glomerular Filt Rate > 60.0 mL/min (>60); Glucose 247 mg/dL (80-110); HEMOLYSIS < 15 (0-50); Potassium 3.7 mmol/L (3.4-5.1); Sodium 136 mmol/L (137-145); Total Protein 6.4 g/dL (6.3-8.2)
[2020-03-16 05:27] LABS: Procalcitonin < 0.05 ng/mL (<0.5)
--- NOTE | 2020-03-16 05:44 | PC.NURSE ---
Addendum entered by Scarlett Ying R.N. 03/16/20 07:11: Attempting to prone, Pt really only able to tolerate position. Will continue to encourage. Original Note: NOC shift Pt is A/o x4, able to make needs known, increased anxiety r/t current diagnosis. Reassured. Pt has heated hiflow oxygen in place, and reports his WOB has improved since arrival to unit. VSS, Spo2 90-96% on 40L and 75% Fio2. Slight desat noted with Pt up to use urinal at bedside. Quick recovery, lungs remain with coarse crackles, R>L, Nonproductive cough, sensitive to temp. of heated flow, using PRN cough suppressant. Increased anxiety as spouse in ER this shift for workup of same s/sx. Continue with steroids and MDI's, monitor WOB and CBG. Pt using call light for needs. SBA. PIV x1 SL. Ibuprofen and APAP given for general aches/malaise.
[2020-03-16] MEDS: DEXAMETHASONE 10 MG/ML VIAL 6 MG IV (08:30)
[2020-03-16] MEDS: guaiFENesin ER 600 MG TAB 1200 MG PO (08:31)
[2020-03-16] MEDS: LORATADINE 10 MG TABLET PO (08:31)
[2020-03-16] MEDS: ENOXAPARIN 40 MG/0.4 ML SYRINGE SUBCUT (08:31)
[2020-03-16] MEDS: MAGNESIUM CHLORIDE 64 MG TABLET PO ×2 (08:32→21:13)
[2020-03-16] MEDS: LOSARTAN 25 MG TABLET PO (08:32)
[2020-03-16] MEDS: SODIUM CHLORIDE 0.9% FLUSH 10 ML IV (08:33)
[2020-03-16] MEDS: REMDESIVIR 100 MG in SODIUM CHLORIDE 0.9% 230 ML 250 ML IV (08:36)
[2020-03-16] MEDS: ALBUTEROL/IPRATROPIUM MDI 1 PUFF INH ×3 (08:41→18:22)
[2020-03-16] MEDS: BUDESONIDE 90mcg FLEXHALER (60 PUFF/DEVICE) INH (08:41)
[2020-03-16] MEDS: INSULIN ASPART 100 UNIT/ML INSULN PEN SUBCUT ×4 (08:57→21:12)
--- NOTE | 2020-03-16 15:02 | PC.NURSE ---
Day Shift Note Patient semi-proning from side to side majority of shift. SpO2 94-97% on 50L, 75% FiO2 heated HFNC. Titrated down to 65% FiO2 this afternoon by RT. Able to make needs known, using call light appropriately. Call light within reach.
--- NOTE | 2020-03-16 15:46 | PM.PN.1 ---
Subjective Subjective Date Patient Seen: 03/16/20 Interval history: Patient is a 59-yea h r-old male who is on day 5 of admission for severe COVID pneumonia and acute respiratory failure. He has been treated with remdesivir and Decadron. Despite that the patient continues to have significant hypoxemia. He was transferred to the intensive care unit last evening placed on high-flow oxygen at 50 L and initially was up to 75% O2. He has been taper down to 65% O2. Patient has been semi prone most of the day. He continues to be short of breath and has intermittent cough Exam Vital Signs (past 8 hours): - 03/16/20 08:41 03/16/20 08:45 03/16/20 09:15 Temperature 97.6 F Pulse Rate 101 H 96 H Respiratory Rate 24 21 Blood Pressure 121/56 L Pulse Oximetry 92 93 94 03/16/20 11:27 03/16/20 12:00 03/16/20 14:14 Temperature 97 F L Pulse Rate 95 H 103 H Respiratory Rate 24 22 Blood Pressure 133/72 Pulse Oximetry 96 94 Fraction of Inspired Oxygen 0.75 SaO2/FiO2 Ratio 17806 Oxygen Delivery Method Heated High Flow Oxygen Flow Rate 50 Narrative Exam Narrative: Ill-appearing male lying in bed on high-flow oxygen Lungs: Clear decreased breath sounds bilaterally no rhonchi crackles or wheezes Cardiac exam: Regular rate and rhythm normal S1-S2 tachycardic Abdomen mildly distended, soft nontender Extremities: No edema Objective Labs Result Diagrams: 03/16/20 04:30 03/16/20 04:30 Labs: Laboratory Results - last 24 hr 03/15/20 03/15/20 03/16/20 20:40 22:28 04:30 WBC 7.2 D RBC 5.12 Hgb 14.5 Hct 42.2 MCV 82.5 MCH 28.3 MCHC 34.3 RDW 12.9 Plt Count 196 Neut % (Auto) 73.6 Lymph % (Auto) 13.7 L [place] % (Auto) 12.6 Eos % (Auto) 0.0 L Baso % (Auto) 0.1 Neut # (Auto) 5300 Lymph # (Auto) 1000 L [place] # (Auto) 900 Eos # (Auto) 0 Baso # (Auto) 0 ABG pH 7.48 H ABG pCO2 34.0 L ABG pO2 59 L ABG HCO3 25 ABG Total CO2 26 ABG O2 Saturation 92 L ABG Base Excess 2.0 FiO2 44 Sodium Potassium Chloride Carbon Dioxide BUN Creatinine Estimated GFR BUN/Creatinine Ratio Glucose Calcium Total Bilirubin AST ALT Alkaline Phosphatase Lactate Dehydrogenase Total Protein Albumin Globulin Albumin/Globulin Ratio Procalcitonin Nasal Screen MRSA (PCR) Negative for mrsa 03/16/20 03/16/20 03/16/20 04:30 04:30 04:30 WBC RBC Hgb Hct MCV MCH MCHC RDW Plt Count Neut % (Auto) Lymph % (Auto) [place] % (Auto) Eos % (Auto) Baso % (Auto) Neut # (Auto) Lymph # (Auto) [place] # (Auto) Eos # (Auto) Baso # (Auto) ABG pH ABG pCO2 ABG pO2 ABG HCO3 ABG Total CO2 ABG O2 Saturation ABG Base Excess FiO2 Sodium 136 L Potassium 3.7 Chloride 100 Carbon Dioxide 32 BUN 15 Creatinine 0.66 Estimated GFR > 60.0 BUN/Creatinine Ratio 22.7 H Glucose 247 H Calcium 8.4 Total Bilirubin 0.7 AST 68 H ALT 59 H Alkaline Phosphatase 57 Lactate Dehydrogenase 1677 H Total Protein 6.4 Albumin 3.4 L Globulin 3.0 Albumin/Globulin Ratio 1.1 Procalcitonin < 0.05 Nasal Screen MRSA (PCR) [facility] Medical History Acid reflux Asthma Diabetes mellitus High blood pressure Pollen allergies Surgical History No history of previous surgery Family History Father Old age Mother Healthy adult Other Family history of allergies Social History household members: spouse and children Smoking Status: Former smoker alcohol intake: current Assessment & Plan Assessment & Plan narrative: Assessment & Plan narrative: Acute COVID-19 viral pneumonia with possible superimposed bacterial pneumonia, present on admission. Active. -Patient presented with fever, chills, myalgias, dry nonproductive cough, decreased appetite and decreased ability to smell and taste for 6 days. -Chest x-ray demonstrated mild borderline consolidative airspace opacity in the right lung base and right mid lung. -COVID-19 positive. -continue dexamethasone and remdesivir --CPAP at night -CT angio-reveals no PE, bilateral alveolar infiltrates noted -Patient to continue proning as tolerated -patient is now requiring heated high-flow oxygen at 50 L and an FiO2 of 65. This is down from an FiO2 of 75 earlier today. -the goal will be to continue the heated high-flow. Should the patient developed progressive respiratory failure would recommend scheduled elective intubation with anesthesia -consider short-term BiPAP if he fails heated high-flow prior to intubation. However once the patient is on BiPAP if he makes no significant improvement would moved to intubation as he has been hospitalized for 5 days at this point. -although he continues to have worsening hypoxemia he appears to be making some progress with persistent proning. 2. Acute hypoxemic respiratory failure, not present on admission. Active. -Patient had mild desaturation overnight on 03/12 and question whether this is true hypoxemia or MELISSA as he was not on CPAP. Patient has asthma and is high risk of pulmonary decompensation. -Continue respiratory therapy evaluation and treatment. Continue supplemental oxygen to maintain oxygen saturations >92% and titrate off as tolerated. Continue to treat COVID 19 viral pneumonia as above. -CPAP at night --patient with a history of asthma -will add steroid inhaler to regimen, continue oxygen, ventolin, combivent for now -he did 5 flow oxygen as above. Consideration of noninvasive ventilation if he fails that. However would rapidly progressed to ventilation if BiPAP is not able to maintain ventilation and oxygenation 3. Obstructive sleep apnea on CPAP, chronic, present on admission. Stable. -Question whether patient's hypoxemia overnight was apnea versus true hypoxemia and inpatient informed me that he has MELISSA. - Continue home CPAP per RT protocol. -continue heated high-flow, consider BiPAP if needed, would intubate for progressive hypoxemia unresponsive to therapies as described 4. Diabetes mellitus type 2, non-insulin using, chronic, present on admission. Stable. -Hemoglobin A1c 9.3% indicative of poor glycemic control. -Held home metformin and glipizide during hospitalization and started Lantus increased from 15 units to 20 units at bedtime due to better control blood glucose in setting of glucocorticoid. Of note, patient reports that he is planning to start insulin in the near future with a specialist. -Continue blood glucose checks and medium dose correctional scale insulin. -Continue heart healthy/carbohydrate consistent diet. -will increase basal insulin as steroids likely increasing sugars 5. Hypertension, chronic, present on admission. Stable. -Continue home losartan 25 mg daily. 6. GERD, chronic, present on admission. Stable. -Continue home omeprazole 20 mg daily at bedtime. Code Status: Full code as discussed with patient VTE prophylaxis: Enoxaparin Quality VTE Deep Vein Thrombosis/Pulmonary Embolism Present on Admission: No
[2020-03-16] MEDS: PANTOPRAZOLE 20 MG TABLET PO (16:28)
[2020-03-16] MEDS: diphenhydrAMINE 25 MG TABLET PO (16:28)
[2020-03-16] MEDS: INSULIN GLARGINE 100 UNIT/ML 3ML PEN 40 UNIT SUBCUT (21:12)
[2020-03-16] MEDS: CODEINE/GUAIFENESIN LIQUID 5ML UDC 10 ML PO (21:14)
[2020-03-16] MEDS: guaiFENesin ER 600 MG TAB PO (21:14)
[2020-03-16] MEDS: BENZONATATE 100 MG CAPSULE PO (21:15)
--- NOTE | 2020-03-16 23:15 | PC.NURSE ---
Evening shift note: Patient semi-proning from side to side majority of shift, at 2100 this nurse was able to get pt positioned into a full prone position, pt tolerating well with telemetry on his back for comfort. SpO2 89-94% on 50L, 55% FiO2 HFNC. RT titrated down to 55% FiO2 at 1700, pt desaturates down as low as 81% with any activity, RT recommended to bolus with 100% oxygen before any activity. Able to make needs known, using call light appropriately. Call light within reach.
[2020-03-17] VITALS (74 sets, daily range): BP systolic 54–213; BP diastolic 35–107; PULSE 72–136; RESP 0–38; TEMP 36.6–38.7; O2SAT 82–98
[2020-03-17] MEDS: CODEINE/GUAIFENESIN LIQUID 5ML UDC 10 ML PO ×2 (01:09→04:41)
[2020-03-17] MEDS: BENZOCAINE/MENTHOL 1 LOZ PKT 1 EACH PO (01:09)
[2020-03-17] MEDS: ACETAMINOPHEN 325 MG TABLET 650 MG PO (03:43)
[2020-03-17] MEDS: BENZONATATE 100 MG CAPSULE PO (04:40)
[2020-03-17 04:59] LABS: Add Manual Diff / Slide Review NO; Basophils Absolute Auto 100 /uL (0-100); Basophils Percent Auto 0.7 % (0-2); Eosinophils Absolute Auto 0 /uL (0-450); Hematocrit 41.2 % (41-53); Hemoglobin 14.1 g/dL (13.5-17.5); Lymphocytes Absolute Auto 1300 /uL (1100-4500); Lymphocytes Percent Auto 13.9 % (25-40); Mean Corpuscular HGB Conc 34.2 % (30-36); Monocytes Absolute Auto 600 /uL (0-900); Monocytes Percent Auto 6.8 % (3-14); Neutrophils Absolute Auto 7100 /uL (1500-7000); Neutrophils Percent Auto 78.6 % (50-75); Platelet Count 237 X10^3/uL (150-400); Red Blood Cell Count 5.03 X10^6/uL (4.5-5.9); Red Cell Distribution Width 13.1 % (11.6-14.8); White Blood Cell Count 9.1 X10^3/uL (4.5-11.0)
[2020-03-17 05:04] LABS: D Dimer 900 ng/mL (<230); Lactate Dehydrogenase 1792 U/L (313-618)
[2020-03-17 05:06] LABS: Alanine Aminotransferase 63 IU/L (<50); Albumin 3.3 g/dL (3.5-5.0); Albumin Globulin Ratio 1.1 (1.0-2.8); Alkaline Phosphatase 60 U/L (38-126); Aspartate Aminotransferase 64 IU/L (17-59); Bilirubin Total 0.9 mg/dL (0.2-1.3); Blood Urea Nitrogen 11 mg/dL (9-20); Calcium 8.3 mg/dL (8.4-10.2); Carbon Dioxide 32 mmol/L (22-32); Chloride 101 mmol/L (98-107); Estimated Glomerular Filt Rate > 60.0 mL/min (>60); Glucose 181 mg/dL (80-110); HEMOLYSIS < 15 (0-50); Potassium 3.3 mmol/L (3.4-5.1); Sodium 135 mmol/L (137-145); Total Protein 6.3 g/dL (6.3-8.2)
[2020-03-17 05:39] LABS: Procalcitonin < 0.05 ng/mL (<0.5)
[2020-03-17 05:40] LABS: Ferritin 875 ng/mL (18-464)
--- NOTE | 2020-03-17 05:57 | PC.NURSE ---
Addendum entered by Kathi Baumann R.N. 03/17/20 07:21: PO potassium given and 40meq K+ Chato started, decreased the infusion rate to 100ml/hr r/t burning at IV site, is patent. Patient desatted to 78% while turning over from Rt side to Lt side, needed to give him 100% O2 bolus. RT called to room, FIO2 now 70%, flow 55L. Original Note: District Agent Note-Patient slept in small increments, rouses easily, is oriented x3, says I'm very tired. Codeine elixer and tesselon pearls given for persistent dry cough, Tylenol given for fever 101.1, brought temp down to 99.1, SR/ST, RR 30s-40s, SpO2 88-93% at rest while lying semi-prone, desats to low 80s with activity and is slow to recover, takes approximately 5-10 minutes to return to 90%, he is on HFNC .55 FIO2, 50L. D-dimer 900, Ferritin 875, LDH 1792, and K+ 3.3 reported to Diane POSEY this am.
[2020-03-17] MEDS: POTASSIUM CHLORIDE 20 MEQ TAB 40 MEQ PO (06:39)
[2020-03-17] MEDS: POTASSIUM CHLORIDE 40 MEQ in SODIUM CHLORIDE 0.9% 500 ML 130 ML IV (06:39)
[2020-03-17] MEDS: ALBUTEROL/IPRATROPIUM MDI 1 PUFF INH ×2 (07:36→13:35)
[2020-03-17] MEDS: ALBUTEROL HFA 200 PUFF/18 GM INH (COVID POS/VENT PTS) INH ×2 (07:37→13:35)
[2020-03-17] MEDS: DEXAMETHASONE 10 MG/ML VIAL 6 MG IV (08:13)
[2020-03-17] MEDS: INSULIN ASPART 100 UNIT/ML INSULN PEN SUBCUT ×3 (08:13→17:13)
[2020-03-17] MEDS: MAGNESIUM CHLORIDE 64 MG TABLET PO (08:14)
[2020-03-17] MEDS: ENOXAPARIN 40 MG/0.4 ML SYRINGE SUBCUT (08:14)
[2020-03-17] MEDS: guaiFENesin ER 600 MG TAB PO (08:14)
[2020-03-17] MEDS: LORATADINE 10 MG TABLET PO (08:14)
[2020-03-17] MEDS: LOSARTAN 25 MG TABLET PO (09:04)
--- NOTE | 2020-03-17 10:09 | PC.NURSE ---
Addendum entered by Betsey Boykin R.N. 03/17/20 14:44: Patient desaturating to low 80s SpO2 when repositioning self in bed, very slow to recover. RT in room and increased heated HFNC settings to 60L and 100% FIO2. SpO2 increased to 94-95% with pt semi-proning. Dr. Chan notified of increase in oxygenation requirements and in to see pt. Decision made to intubate. Planned intubation for 4 pm. RT notified and aware, ABG to be drawn prior to intubation. Coordinator, Vanna HARRIS, to call on-call anesthesiologist Dr. Davis. Addendum entered by Betsey Boykin R.N. 03/17/20 12:51: SpO2 up to 97% when proning on heated HFNC 55L, 80% FiO2. 94-96% when semi-proning. Desaturated to 81% with activity. Unable to tolerate full proning for long periods of time. PICC line placed by [employer] without issue. Original Note: Day Shift Note Pt alert and oriented x3. Increasing work of breathing noted on AM assessment with SpO2 decreasing as low as the 70s, RR in the 30s, ST in the 120s. RT in room and heated HFNC settings increased to 55L and 80% FiO2. While patient sitting up in bed and talking, SpO2 88-90%. Any further activity SpO2 decreases to low 80s with prolonged recovery time. Assisted to semi-prone to left side and SPO2 increased to 93-95% with RR down to the 20s, ST in the low 110s. Peripheral IV to left wrist removed due to pt report of pain with infusion and visible swelling/infiltration. New peripheral IV access attempted x3 but all infiltrated. Dr. Chan notified and order obtained for PICC line placement. Edgar called and currently here to insert PICC line. Call light within reach, using appropriately to make needs known.
[2020-03-17] MEDS: REMDESIVIR 100 MG in SODIUM CHLORIDE 0.9% 230 ML 250 ML IV (10:49)
[2020-03-17] MEDS: FLUTICASONE 120 SPRAY/16 GM SPRAY.SUSP NASAL (11:44)
--- NOTE | 2020-03-17 12:25 | P.PN_ITS ---
Subjective Subjective Date Patient Seen: 03/17/20 Time Patient Seen: 12:25 Interval history: Hamilton Keen ia a 59 year old male with PH of HTN, DM who is admitted with COVID-19 pneumonia. He was moved to the ICU and started on High flow nasal cannula. Continues to worsen now on 50L at 80% FiO2. He improves with proning but has a hard time tolerating being on his stomach. He complains of rhinorrhea, cough, but no chest pain, abdominal pain, nausea, vomiting, di arrhea. Rediscussed goals of care, he would like to be intubated if needed, understands severity of the infection and that he may not be able to come off the ventilator. He also requests we continue as long as possible before intubation in hopes of avoiding this. Advised him to discuss wishes with his family today if he does end up needing to be intubated for some time. If he continues to worsen, as he is almost maximized on high flow, will likely need to intubate and therefore transfer. Did discuss with [facility] transfer [place] and there are currently ICU beds available if needed. Exam Vital Signs (past 8 hours): - 03/17/20 04:58 03/17/20 07:27 03/17/20 08:00 Temperature 99.1 F 101.7 F H Pulse Rate 105 H Respiratory Rate 28 H 34 H Blood Pressure 131/69 Pulse Oximetry 88 L 90 L 03/17/20 09:59 03/17/20 11:52 Temperature 98 F Pulse Rate 106 H 116 H Respiratory Rate 28 H 29 H Blood Pressure 125/59 L Pulse Oximetry 93 93 Fraction of Inspired Oxygen 0.8 SaO2/FiO2 Ratio 161 Oxygen Delivery Method Heated High Flow Oxygen Flow Rate 55 Narrative Exam Narrative: GENERAL APPEARANCE: Acutely ill-appearing male, fatigued, with nasal cannula in place SKIN: Inspection of the skin reveals no rashes, ulcerations or petechiae. HEENT: Normocephalic atraumatic, extraocular muscles are intact, oropharynx is clear and mucous membranes are moist, neck is supple without adenopathy NECK: Supple and symmetric. There was no thyroid enlargement, and no tenderness, or masses were felt. CHEST: Normal AP diameter and normal contour without any kyphoscoliosis. LUNGS: Auscultation of the lungs revealed no wheezes, rhonchi, or rales. CARDIOVASCULAR: There was a regular rate and rhythm without any murmurs, gallops, rubs. Peripheral pulses were 2+ and symmetric. ABDOMEN: Soft and nontender with normal bowel sounds. No ascites was noted. MUSCULOSKELETAL: There was no tenderness or effusions noted. Muscle strength and tone were normal. EXTREMITIES: No cyanosis, clubbing or edema. NEUROLOGIC: Alert and oriented x 3. Anxious, fatigued. Strength is +5/5 in the Upper Extremities and Lower Extremities Bilaterally. Objective Labs Result Diagrams: 03/17/20 04:45 03/17/20 04:45 Labs: Laboratory Results - last 24 hr 03/17/20 03/17/20 03/17/20 04:45 04:45 04:45 WBC 9.1 RBC 5.03 Hgb 14.1 Hct 41.2 MCV 82.0 MCH 28.0 MCHC 34.2 RDW 13.1 Plt Count 237 Neut % (Auto) 78.6 H Lymph % (Auto) 13.9 L [place] % (Auto) 6.8 Eos % (Auto) 0.0 L Baso % (Auto) 0.7 Neut # (Auto) 7100 H Lymph # (Auto) 1300 [place] # (Auto) 600 Eos # (Auto) 0 Baso # (Auto) 100 D-Dimer 900 H Sodium 135 L Potassium 3.3 L Chloride 101 Carbon Dioxide 32 BUN 11 Creatinine 0.61 L Estimated GFR > 60.0 BUN/Creatinine Ratio 18.0 Glucose 181 H Calcium 8.3 L Ferritin Total Bilirubin 0.9 AST 64 H ALT 63 H Alkaline Phosphatase 60 Lactate Dehydrogenase Total Protein 6.3 Albumin 3.3 L Globulin 3.0 Albumin/Globulin Ratio 1.1 Procalcitonin 03/17/20 03/17/20 04:45 04:45 WBC RBC Hgb Hct MCV MCH MCHC RDW Plt Count Neut % (Auto) Lymph % (Auto) [place] % (Auto) Eos % (Auto) Baso % (Auto) Neut # (Auto) Lymph # (Auto) [place] # (Auto) Eos # (Auto) Baso # (Auto) D-Dimer Sodium Potassium Chloride Carbon Dioxide BUN Creatinine Estimated GFR BUN/Creatinine Ratio Glucose Calcium Ferritin 875 H Total Bilirubin AST ALT Alkaline Phosphatase Lactate Dehydrogenase 1792 H Total Protein Albumin Globulin Albumin/Globulin Ratio Procalcitonin < 0.05 [facility] Medical History Acid reflux Asthma Diabetes mellitus High blood pressure Pollen allergies Surgical History No history of previous surgery Family History Father Old age Mother Healthy adult Other Family history of allergies Social History household members: spouse and children Smoking Status: Former smoker alcohol intake: current Assessment & Plan Assessment & Plan narrative: Hamilton Keen ia a 59 year old male with PH of HTN, DM who is admitted with COVID-19 pneumonia. He was moved to the ICU and started on High flow nasal cannula. Continues to worsen now on 50L at 80% FiO2. 1. Acute COVID-19 viral pneumonia with possible superimposed bacterial pneumonia, present on admission. Active. -Patient presented with fever, chills, myalgias, dry nonproductive cough, decreased appetite and decreased ability to smell and taste for 6 days. -Chest x-ray demonstrated mild borderline consolidative airspace opacity in the right lung base and right mid lung. -COVID-19 positive. -continue dexamethasone and remdesivir x10 days (extended remdesevir therapy from 5 to now 10). -CPAP at night -CT angio-reveals no PE, bilateral alveolar infiltrates noted -Patient to continue proning as tolerated -patient is now requiring heated high-flow oxygen at 50 L and an FiO2 of 80. Overall trend concerning. -the goal will be to continue the heated high-flow. Should the patient developed progressive respiratory failure would recommend scheduled elective intubation with anesthesia -consider short-term BiPAP if he fails heated high-flow prior to intubation. However once the patient is on BiPAP if he makes no significant improvement would moved to intubation as he has been hospitalized for 5 days at this point. -although he continues to have worsening hypoxemia he appears to be making some progress with persistent proning. Will respect wishes and attempt to avoid intubation as much as possible, however trend is concerning. If intubated, would necessitate transfer via [facility] transfer center. 2. Acute hypoxemic respiratory failure, not present on admission. Active. -Patient had mild desaturation overnight on 03/12 and question whether this is true hypoxemia or MELISSA as he was not on CPAP. Patient has asthma and is high risk of pulmonary decompensation which he is currently experiencing. -Continue respiratory therapy evaluation and treatment. Continue supplemental oxygen to maintain oxygen saturations >92% and titrate off as tolerated. Continue to treat COVID 19 viral pneumonia as above. -CPAP at night -added steroid inhaler to regimen, continue oxygen, ventolin, combivent for now 3. Obstructive sleep apnea on CPAP, chronic, present on admission. Stable. 4. Diabetes mellitus type 2, non-insulin using, chronic, present on admission. Stable. -Hemoglobin A1c 9.3% indicative of poor glycemic control. -Held home metformin and glipizide during hospitalization and started Lantus increased at bedtime due to better control blood glucose in setting of glucocorticoid. Of note, patient reports that he is planning to start insulin in the near future with a specialist. -Continue blood glucose checks and medium dose correctional scale insulin. -Continue heart healthy/carbohydrate consistent diet. -continue to adjust insulin therapy as needed. 5. Hypertension, chronic, present on admission. Stable. -Continue home losartan 25 mg daily. 6. GERD, chronic, present on admission. Stable. -Continue home omeprazole 20 mg daily at bedtime. Code Status: Full code as discussed with patient. VTE prophylaxis: Enoxaparin Quality VTE Deep Vein Thrombosis/Pulmonary Embolism Present on Admission: No
[2020-03-17] MEDS: PSEUDOEPHEDRINE 30 MG TABLET PO (13:38)
--- NOTE | 2020-03-17 13:48 | CM.DPC ---
DCP Cont: Per MD, pt with COVID + and pneumonia and continues to progressively worsen with possible need for intubation. MD discussion with pt bedside regarding code status/POLST and pt agreeable to intubation if needed but requesting to wait as long as possible. Pt getting PICC placed as he lost his IV access and continues to have fever and requiring increasing amounts of HFNC oxygen with O2 stats decreasing with any activity and cannot tolerate prone position long. Per RT, high likelihood that pt will need to be intubated later today. Per refrigerator tester, if pt needs to be intubated then plan is to attempt to find an accepting hospital to transfer pt in order to have a vice president of human resources on site. Plan: SW to follow closely to determine if intubation needed and possible hospital transfer for higher level of care for COVID + symptoms. FOLR Villar
--- NOTE | 2020-03-17 14:54 | PM.DS.1 ---
History of Present Illness History of Present Illness Date Patient Seen: 03/17/20 Time Patient Seen: 14:54 Chief complaint: Temp 104.5, Elevated BP Narrative: As per TATY Denson: Hamilton Keen is a 59-year-old male with Diabetes type 2 and essential hypertension who presented with a 6 day history of worsening shortness of breath, cough no taste, seen at PCPs, had a fever of 104 and sent to ED, found to have a right lower lobe pneumonia and is COVID-19 positive. 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 Patient states that when he lost his sense of taste and started coughing he became quite concerned that he might have COVID -19. Other than the fever he denies chills or sweats, nausea, chest pain, dysuria, diarrhea or constipation. Chest x-ray done in the ED indicated consolidation of the right lower lung base. His COVID-19 PCR was positive and he is not requiring supplemental oxygen at this time. T-max was 100.3? in the emergency department is currently 98.8, blood pressure 157 over so 86, heart rate 106, respiratory rate of 18, oxygen saturation 96% on room air, he weighs 112 kg with a BMI of 134.4. With exception of his platelet count on his CBC is with a largely within normal limits his platelet count was a 139 and he has lymphopenia, sodium 135, glucose 327, A1c is pending, his ALT is slightly elevated at 60, urinalysis does not meet criteria for culture and COVID-19 PCR is positive. Discharge Providers Provider Date of admission: 03/11/20 01:04 Discharge Date: 03/17/20 Consults: 03/17/20 14:17 Consult to Dietitian, Adult Routine Comment: Reason For Exam: Patient on Ventilator and NPO Discharge provider: Emiliano Chan DO Summary Hospital Course Discharge Diagnosis: Please see hospital course by problem list noted below. Hospital Course: Hamilton Keen ia a 59 year old male with PH of HTN, DM who was admitted with COVID-19 pneumonia and acute hypoxic respiratory failure. He continued to decline over the course of admission, despite remdesevir and decadron therapy for the first 5 days. He failed heated high flow with continuing tachypnea and desaturations despite increasing flow rate and FiO2 at 100%, he does improve with proning but he was not able to significantly tolerate this for a prolonged length of time. Once blood gas showing PaO2 of 39 on 100% FiO2 and 60L and continued high work of breathing, goals of care were discussed and patient elected for continuing with intubation. 1. Acute COVID-19 viral pneumonia, present on admission. Active. -Patient presented with fever, chills, myalgias, dry nonproductive cough, decreased appetite and decreased ability to smell and taste for 6 days. Chest x-ray demonstrated mild borderline consolidative airspace opacity in the right lung base and right mid lung. -dexamethasone and remdesivir can continue x10 days (extended remdesevir therapy from 5 to now 10, today is day 5) -CT angio-revealed no PE on HD#4 for worsening hypoxia. bilateral alveolar infiltrates noted in upper and lower lobes bilaterally. -Patient was encouraged to prone as much as possible. He did improve with proning but was not able to tolerate this for extended durations. -patient was initially only requiring nasal cannula, however oxygenation continued to decline over the course of admission. Once maxed out with heated high flow and patient's arterial blood gas showing pH 7.51, PCO2 26, PO2 of 39 with 80% sO2 on 100% and 60L heated high flow goals of care discussed with patient and proceeded with intubation. On admission, PO2 from ABG was 59 on nasal cannula. -intubated 03/17 pm, started on fentanyl and propofol for sedation. PICC access obtained on 03/17 as well for access. After intubation transferred to [facility] in [place] for higher level of care. Accepting physician Dr. Steward. -D dimer trend 220 on admission, now 900 on day of transfer. AST / ALT stable between 60-80. LDH 600 on admission now 1792 on HD#5. -procalcitonin negative and no leukocytosis, no antibiotics were given during his current hospital stay. -Chest xray after intubation showing worsening bilateral patchy infiltrates, ET tube and OG tube in correct locations. 2. Acute hypoxemic respiratory failure and ARDS. -management as noted above. Has underlying obesity and MELISSA, mild intermittent asthma at baseline complicating his severe COVID-19 pneumonia. -added steroid inhaler to regimen, continue oxygen, ventolin, combivent. -ABG at intubation on high flow at 100% shows Po2 of 39 consistent with severe ARDS. 3. Obstructive sleep apnea on CPAP, chronic, present on admission. Stable. 4. Diabetes mellitus type 2, non-insulin using, chronic, present on admission. Stable. -Hemoglobin A1c 9.3% indicative of poor glycemic control. -Held home metformin and glipizide during hospitalization and started Lantus increased at bedtime due to better control blood glucose in setting of glucocorticoid. Of note, patient reports that he is planning to start insulin in the near future with a specialist. -Continue blood glucose checks and medium dose correctional scale insulin. -continue to adjust insulin therapy as needed. -patient was tolerating a diet prior to intubation. 5. Hypertension, chronic, present on admission. Stable. -Continued home losartan 25 mg daily. 6. GERD, chronic, present on admission. Stable. -Continued home omeprazole 20 mg daily at bedtime initially, now continue IV PPI for prophylaxis. Code Status: Full code as discussed with patient. VTE prophylaxis: Enoxaparin I spent 45 minutes providing critical care management this patient. This excludes time spent in performing separately billed procedures. 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 Time Spent with Patient Time spent: Greater than 30 minutes Exam Vital Signs (past 8 hours): - 03/17/20 07:27 03/17/20 08:00 03/17/20 08:30 Temperature 101.7 F H Pulse Rate 105 H Respiratory Rate 28 H 34 H Blood Pressure 131/69 Pulse Oximetry 88 L 90 L 91 03/17/20 09:59 03/17/20 11:52 03/17/20 13:36 Temperature 98 F Pulse Rate 106 H 116 H 105 H Respiratory Rate 28 H 29 H 35 H Blood Pressure 125/59 L Pulse Oximetry 93 93 95 Fraction of Inspired Oxygen 100 SaO2/FiO2 Ratio 95 Oxygen Delivery Method Heated High Flow Oxygen Flow Rate 60 Narrative Exam Narrative: GENERAL APPEARANCE: Acutely ill-appearing male, now intubated and sedated SKIN: Inspection of the skin reveals no rashes, ulcerations or petechiae. HEENT: Normocephalic atraumatic, extraocular muscles are intact, oropharynx is clear and mucous membranes are moist, neck is supple without adenopathy NECK: Supple and symmetric. There was no thyroid enlargement, and no tenderness, or masses were felt. CHEST: Normal AP diameter and normal contour without any kyphoscoliosis. LUNGS: Auscultation of the lungs revealed no wheezes, rhonchi, or rales. CARDIOVASCULAR: There was a regular rate and rhythm without any murmurs, gallops, rubs. Peripheral pulses were 2+ and symmetric. ABDOMEN: Soft and nontender with normal bowel sounds. No ascites was noted. MUSCULOSKELETAL: There was no tenderness or effusions noted. Muscle strength and tone were normal. EXTREMITIES: No cyanosis, clubbing or edema. NEUROLOGIC: now sedated after intubation. Objective Labs Result Diagrams: 03/17/20 04:45 03/17/20 04:45 Labs: Laboratory Results - last 24 hr 03/17/20 03/17/20 03/17/20 04:45 04:45 04:45 WBC 9.1 RBC 5.03 Hgb 14.1 Hct 41.2 MCV 82.0 MCH 28.0 MCHC 34.2 RDW 13.1 Plt Count 237 Neut % (Auto) 78.6 H Lymph % (Auto) 13.9 L Baker % (Auto) 6.8 Eos % (Auto) 0.0 L Baso % (Auto) 0.7 Neut # (Auto) 7100 H Lymph # (Auto) 1300 Baker # (Auto) 600 Eos # (Auto) 0 Baso # (Auto) 100 D-Dimer 900 H Sodium 135 L Potassium 3.3 L Chloride 101 Carbon Dioxide 32 BUN 11 Creatinine 0.61 L Estimated GFR > 60.0 BUN/Creatinine Ratio 18.0 Glucose 181 H Calcium 8.3 L Ferritin Total Bilirubin 0.9 AST 64 H ALT 63 H Alkaline Phosphatase 60 Lactate Dehydrogenase Total Protein 6.3 Albumin 3.3 L Globulin 3.0 Albumin/Globulin Ratio 1.1 Procalcitonin 03/17/20 03/17/20 04:45 04:45 WBC RBC Hgb Hct MCV MCH MCHC RDW Plt Count Neut % (Auto) Lymph % (Auto) Baker % (Auto) Eos % (Auto) Baso % (Auto) Neut # (Auto) Lymph # (Auto) Baker # (Auto) Eos # (Auto) Baso # (Auto) D-Dimer Sodium Potassium Chloride Carbon Dioxide BUN Creatinine Estimated GFR BUN/Creatinine Ratio Glucose Calcium Ferritin 875 H Total Bilirubin AST ALT Alkaline Phosphatase Lactate Dehydrogenase 1792 H Total Protein Albumin Globulin Albumin/Globulin Ratio Procalcitonin < 0.05 [facility] Medical History Acid reflux Asthma Diabetes mellitus High blood pressure Pollen allergies Surgical History No history of previous surgery Family History Father Old age Mother Healthy adult Other Family history of allergies Social History household members: spouse and children Smoking Status: Former smoker alcohol intake: current Discharge Plan Dis[facility]TE Deep Vein Thrombosis/Pulmonary Embolism Present on Admission: No
[2020-03-17] MEDS: propofoL 1,000 MG/100 ML VIAL 3.117 MG IV ×2 (15:36→19:24)
[2020-03-17 15:42] LABS: pH ABG 7.51 (7.35-7.45)
[2020-03-17 15:43] LABS: PCO2 ABG 26.3 mmHg (35-45)
[2020-03-17 15:44] LABS: HCO3 ABG 21 mmol/L (22-26); Oxygen Saturation ABG 80 % (95-100); PO2 ABG 39 mmHg (80-100); TCO2 ABG 22 mmol/L (21-31)
[2020-03-17 15:45] LABS: Fractionated Inspired Oxygen 100
[2020-03-17] MEDS: fentaNYL 1,000 MCG in DEXTROSE 5% IN WATER 230 ML 18.183 ML IV (16:10)
--- NOTE | 2020-03-17 16:46 | PM.PROC.1 ---
Procedures Date/Time Date of procedure: 03/17/20 Time of procedure: 16:00 Intubation Time out performed: Yes Sedative: other (Propofol) Mg given: 160 Paralytic: succinylcholine (sux 200mg, rocuronium 50mg) Mg given: 200 Laryngoscope: other (optical stylet) ET tube size: 8 ET tube uncuffed: No Tube secured depth (cm): 25 Tube secured location: teeth Tube placement confirmation: visualized tube passing through cords, equal breath sounds bilaterally, no breath sounds over epigastrium and confirmation by capnometry Patient tolerated procedure: well Intubation complications: none Additional comments: X-ray confirmation of proper tube placement
[2020-03-17] MEDS: NOREPINEPHRINE 4 MG in DEXTROSE 5% IN WATER 250 ML 30.48 ML IV (18:15)
[2020-03-17 18:20] LABS: HCO3 ABG 24 mmol/L (22-26); PCO2 ABG 39.4 mmHg (35-45); PO2 ABG 40 mmHg (80-100); TCO2 ABG 25 mmol/L (21-31); pH ABG 7.39 (7.35-7.45)
[2020-03-17 18:21] LABS: Fractionated Inspired Oxygen 80
[2020-03-17 18:22] LABS: Oxygen Saturation ABG 74 % (95-100)
--- NOTE | 2020-03-17 21:10 | PC.NURSE ---
Evening shift note: Intubation of patient at 1600, staff in the room was Dr Chan, Susan Norwood charge nurse, Respiratory therapist Lesvia and this nurse. Intubation began at 1615 vitals 166/86 HR 119 respiratory rate 13 O2 89% 1617 Anesthesiologist administered medications provided by anesthesiologist 1622 Propofal and Fentanyl gtts started see MAR for rates vitals 117/63 HR 105 O2 82% 1624 vitals 111/65 HR 104 O2 83% 1630 NG placed vitals 117/68 HR 106 O2 90% 1631 CXR placement of ET, NG vitals 113/67 HR 105 O2 95% 1632 Tubes advanced, NG 57 and ET 26 at teeth reverified by CXR vitals 123/71 HR 106 O2 94% 1644 Restraints placed vitals 108/59 HR 104 O2 91% 1700 Mcgill catheter placed, patent, urine clear jason 1815 Levophed gtt started for MAP of 51 (see documentation for vitals) 2034 Transport team arrived, report given, pt left with all belongings, no further pt contact at this time
== END 2020-03-17 20:35 | disposition short-term general hospital (02) | DRG 208 ==
LOC: ED 19:53 → AC 03-11 01:04 → ICU 03-15 20:36
PROVIDERS: Internal Medicine; Nurse Practitioner Adult Health; Admitting Provider Nurse Practitioner Family; Emergency Provider Emergency Medicine; Referring Provider Emergency Medicine; Visit Provider Nurse Practitioner Family
DX: U07.1 COVID-19 (principal); J12.89 Other viral pneumonia; J15.9 Unspecified bacterial pneumonia; J80 Acute respiratory distress syndrome; E11.65 Type 2 diabetes mellitus with hyperglycemia; G47.33 Obstructive sleep apnea (adult) (pediatric); I10 Essential (primary) hypertension; E66.9 Obesity, unspecified; J45.20 Mild intermittent asthma, uncomplicated; K21.9 Gastro-esophageal reflux disease without esophagitis; Z68.31 Body mass index [BMI] 31.0-31.9, adult; Z87.891 Personal history of nicotine dependence
CPT/HCPCS: 36415; 36569; 36592; 36600; 71045; 71275; 80048; 80053; 81001; 81003; 82728; 82805; 82962; 83036; 83605; 83615; 83690; 83735; 84145; 85025; 85379; 85610; 85730; 86140; 87040; 87070; 87205; 87635; 87797; 93005; 94002; 94640; 94762; 94770; 94799; 96361; 96365; 96366; 99282; 99284; A9270; J0330; J1100; J1650; J1956; J2704; J3010; J3480; Q9967